=== PATIENT | female | born 1980 | race Caucasian/White ===

== ENCOUNTER 2024-11-07 17:29 | Inpatient (IN) | payer MEDICAID ==
[~2024-11-07] VITALS: Ht 152.4 cm; Wt 69.4 kg
[2024-11-07 21:20] VITALS: BP 111/73; PULSE 78; RESP 18; TEMP 96.6; O2SAT 98
[2024-11-07] MEDS ORDERED: chlorproMAZINE 25mg tablet PO PRN (21:55)
[2024-11-07] MEDS ORDERED: loperamide 2mg capsule PO PRN (21:55)
[2024-11-07] MEDS ORDERED: magnesium hydroxide 30ml (MOM) UD suspension PO PRN (21:55)
[2024-11-07] MEDS ORDERED: mag hydrox/Alum hydrox/simeth 30ml oral suspension PO PRN (21:55)
[2024-11-07] MEDS ORDERED: hydrOXYzine 25 MG tablet PO PRN (21:55)
[2024-11-07] MEDS ORDERED: diphenhydrAMINE 25mg capsule PO PRN (21:55)
[2024-11-07] MEDS ORDERED: acetaminophen 325mg tablet PO PRN ×2 (21:55)
[2024-11-08 07:45] VITALS: RESP 16
--- NOTE | 2024-11-08 13:04 | HISTORY AND PHYSICAL ---
MH History & Physical - Blank History and Physical CHIEF COMPLIANT DANGER TO SELF DANGER TO OTHERS GRAVELY DISABLED HISTORY OF PRESENT ILLNESS This patient is a 43-year-old female with a past medical history of schizoaffective disorder with multiple prior visits to Mental Health who is very familiar with the patient who presents with mental health and for other police officers due to being a danger to self, others and possible gravely disabled. Patient states that she is the president of you crying in [place] as well as being involved in trauma. The patient states that she will not take any medication that she would not give any bled as she is allergic to giving blood and will pass out. The patient was noted to have been going from household to household presenting herself as being a danger to others and verbal form but not physical form. The patient presents denied any complaints but also refusing to answer any questions other than the questions which she has decided to talk about with a rambling stream of consciousness with evidence of paranoia and delusional. CHART REVIEW This 43 year old female admitted [facility] shift at 2119 from [facility]. Arrived to unit from ED via w/c, accompanied per [facility] staff and Security Personnel. Pt is on a 5150 for DTS, DTO and GD. Per 5150, this pt was being evaluated for release from senior care but had no plan for providing food, clothing or half-way. Also, she is reported to be delusional, stating that the was the President of the [place] and [facility]. She is also reported to have been responding to internal stimuli. Prior to her arrest, she was reported to have been wandering from house to house and harassing others, and she told nurses she would find a house and move in. Referral info states she also said she was the of Chance Bergman (a fictional character) and that the [facility] government would bring to others. Upon arrival to [facility], she denies SI/HI/AVH. Upon meeting pt, she spoke in Maltese and appeared to understand/comprehend. When asked about her primary language (pt's referral information reports that she is from [facility] before explaining her 5150 hold, she stated she wanted an Connection Worker. When explaining to pt that I would explain the 5150 using the camp counselor but it might be several minutes before the camp counselor machine could be obtained, she gave verbal permission to receive the verbal advisement in Maltese and verbalized that she understood. Also presented pt with 5150 advisement in writing. On admit, Pt hostile, refusing to answer most questions, stating she does not want to be here and the re is no reason for her to be here. Alert, oriented to person and place but she has poor insight into her need for hospitalization. ASSESSMENT The patient refused assessment today. The patient endorses "I am not talking to anyone here." The patient is stable no acute distress noted. The patient is a, irritable, agitated, paranoid, delusional, and disengaged. The patient was noted responding to internal stimuli AEB talking to herself. Will continue daily assessment and adjusting treatment as needed. Closely monitor behavior and response to medication during hospitalization. Discussed treatment plan with patient. ASE/risks and benefits of chosen treatment. REVIEW OF LABS URINALYSIS NEGATIVE URINE DRUG SCREEN NEGATIVE WBC 8.6 RBC 4.22 HEMOGLOBIN 12.8 HEMATOCRIT 37.3 PLATELETS 347 SODIUM 141 POTASSIUM 3.6 CHLORIDE 108 ANION GAP 10 GLUCOSE 98 BUN 11 CREATININE 0.72 CALCIUM 9.1 ALT22 AST12 TSH 5.32 MENTAL STATUS EXAM BEHAVIOR: UNCOOPERATIVE JUDGMENT: POOR INSIGHT: POOR TREATMENT PALIPERIDONE 3 MG P.O. Q.H.S. Monitoring by Staff, Milieu, Group, and Individual counseling as needed -- According to the [place] Suicide Assessment the above named patient is on Q15 MINUTE CHECKS. [id number]-The patient is unable to formulate a plan to safely meet their basic needs of food, clothing, and half-way. We are still titrating medications to an effective dose while maintaining a therapeutic environment to prevent decompensation and readmission. Total time spent 20 minutes REVIEW OF Clinical notes [X ] RN notes [X] PCT documentation [X] SW notes Labs [ X] Medications [X] Care trends/care activity [X] Vitals [X] DISCUSSION WITH directional drill operator [X] Staff SW [X] Treatment Team [X] DISCHARGE UNSURE AT THIS TIME. DISCHARGE HOME ONCE STABLE. Past Psychiatric History Past Psychiatric History PATIENT REFUSED TO PARTICIPATE IN THE ASSESSMENT Past Medical History Past Medical History SEE MEDICAL H & P Past Surgical History Past Surgical History PATIENT REFUSED TO PARTICIPATE IN THE ASSESSMENT Past Family History Patient History: Patient reports no known family medical history. Substance Abuse History Substance Abuse History PATIENT REFUSED TO PARTICIPATE IN THE ASSESSMENT Personal History Current Living Situation PATIENT REFUSED TO PARTICIPATE IN THE ASSESSMENT Marital & Relationship History PATIENT REFUSED TO PARTICIPATE IN THE ASSESSMENT Sexual History PATIENT REFUSED TO PARTICIPATE IN THE ASSESSMENT Occupational History PATIENT REFUSED TO PARTICIPATE IN THE ASSESSMENT Social Activity PATIENT REFUSED TO PARTICIPATE IN THE ASSESSMENT Baptist PATIENT REFUSED TO PARTICIPATE IN THE ASSESSMENT Legal History PATIENT REFUSED TO PARTICIPATE IN THE ASSESSMENT History PATIENT REFUSED TO PARTICIPATE IN THE ASSESSMENT Developmental History Childhood PATIENT REFUSED TO PARTICIPATE IN THE ASSESSMENT Assessment/Plan Problems/Diagnosis: (1) Schizoaffective disorder CODING VISIT-PSYCHIATRY Date of Service: Nov 08, 2024 Billing Provider: IVANNA TRAORE APRN Psych Common Visit Codes: [id number] INP/OBS CARE (High) IVANNA TRAORE APRN Nov 08, 2024 13:04
--- NOTE | 2024-11-08 15:36 | HISTORY AND PHYSICAL ---
History & Physical Providers to CC ~ History of Present Illness History of Present Illness PT REFUSED Allergies: Coded Allergies: No Known Allergies (Unverified , 11/07/24) Family History Family History: Patient reports no known family medical history. Exam Vitals: Vital Signs Date Time Temp Pulse Resp B/P (MAP) Pulse Ox O2 Delivery O2 Flow Rate FiO2 11/08/24 07:45 16 11/08/24 07:30 Room Air 11/07/24 21:20 96.6 78 111/73 (86) 98 HENRY GRAY MD Nov 08, 2024 15:36
[2024-11-08 19:00] VITALS: RESP 16
[2024-11-08 20:00] VITALS: RESP 16
[2024-11-08] MEDS: PALIPERIDONE 3 MG TAB.ER.24 PO SCH (21:00)
[2024-11-08] MEDS: OLANZapine 5mg rapidly disint. tablet PO SCH (21:00)
[2024-11-09 08:47] VITALS: RESP 16
[2024-11-09 12:52] VITALS: RESP 16
--- NOTE | 2024-11-09 13:57 | PROGRESS NOTE ---
Progress Note Dictate Providers to CC ~ Central Line/PICC still needed: N\\A Antibiotic Ordered?: No MRSA Education MRSA Education Provided to pt: No Objective Vitals Vital Signs Date Time Temp Pulse Resp B/P (MAP) Pulse Ox O2 Delivery O2 Flow Rate FiO2 11/09/24 12:52 16 Room Air 11/07/24 21:20 96.6 78 111/73 (86) 98 Problem\\Assessment\\Plan Problems/Diagnosis: (1) Schizoaffective disorder Psychiatrist's Progress Note Date of Service: Nov 09, 2024 Notes CHART REVIEW This 43 year old female admitted [facility] shift at 2118 from [facility]. Arrived to unit from ED via w/c, accompanied per [facility] staff and Security Personnel. Pt is on a 5150 for DTS, DTO and GD. Per 5150, this pt was being evaluated for release from correction but had no plan for providing food, clothing or assisted. Also, she is reported to be delusional, stating that the was the President of the and [facility]. She is also reported to have been responding to internal stimuli. Prior to her arrest, she was reported to have been wandering from house to house and harassing others, and she told nurses she would find a house and move in. Referral info states she also said she was the of Chance Bergman (a fictional character) and that the [facility] government would bring to others. Upon arrival to [facility], she denies SI/HI/AVH. Upon meeting pt, she spoke in [place] and appeared to understand/comprehend. When asked about her primary language (pt's referral information reports that she is from [facility]) before explaining her 5150 hold, she stated she wanted an Propellant Assembler. When explaining to pt that I would explain the 5150 using the bilingual interpreter but it might be several minutes before the bilingual interpreter machine could be obtained, she gave verbal permission to receive the verbal advisement in Emirati and verbalized that she understood. Also presented pt with 5150 advisement in writing. On admit, Pt hostile, refusing to answer most questions, stating she does not want to be here and there is no reason for her to be here. Alert, oriented to person and place but she has poor insight into her need for hospitalization. ASSESSMENT The patient refused assessment today. The patient endorses "I am not talking to anyone here." The patient is stable no acute distress noted. Will continue daily assessment and adjusting treatment as needed. Closely monitor behavior and response to medication during hospitalization. Patient may need to be Riese if she continues to refuse assessments and medications. Results Of any Diagn. Testing REVIEW OF LABS URINALYSIS NEGATIVE URINE DRUG SCREEN NEGATIVE WBC 8.6 RBC 4.22 HEMOGLOBIN 12.8 HEMATOCRIT 37.3 PLATELETS 347 SODIUM 141 POTASSIUM 3.6 CHLORIDE 108 ANION GAP 10 GLUCOSE 98 BUN 11 CREATININE 0.72 CALCIUM 9.1 ALT22 AST12 TSH 5.32 Speech: Pressured Behavior: Other (UNCOOPERATIVE ) Insight: Poor Judgment: Poor Treatment PALIPERIDONE 3 MG P.O. Q.H.S. Monitoring by Staff, Milieu, Group, and Individual counseling as needed -- According to the [place] Suicide Assessment the above named patient is on Q15 MINUTE CHECKS. [id number]-The patient is unable to formulate a plan to safely meet their basic needs of food, clothing, and assisted. We are still titrating medications to an effective dose while maintaining a therapeutic environment to prevent decompensation and readmission. Total time spent 15 minutes REVIEW OF Clinical notes [X ] RN notes [X] PCT documentation [X] SW notes Labs [ X] Medications [X] Care trends/care activity [X] Vitals [X] DISCUSSION WITH cloth opener hand [X] Staff SW [X] Treatment Team [X] Discharge UNSURE AT THIS TIME. DISCHARGE HOME ONCE STABLE. CODING VISIT-PSYCHIATRY Date of Service: Nov 09, 2024 Billing Provider: IVANNA TRAORE APRN Psych Common Visit Codes: [id number] INP/OBS CARE(Mod) IVANNA TRAORE APRN Nov 09, 2024 13:57
[2024-11-09 20:00] VITALS: RESP 16
[2024-11-10 07:00] VITALS: RESP 16
[2024-11-10 08:26] VITALS: RESP 16
--- NOTE | 2024-11-10 11:26 | PROGRESS NOTE ---
Daily Progress Note Providers to CC ~ Antibiotic Timeout Antibiotic Ordered?: No Subjective Patient has no medical complaints Objective Vital Signs Date Time Temp Pulse Resp B/P (MAP) Pulse Ox O2 Delivery O2 Flow Rate FiO2 11/10/24 08:26 16 Room Air 11/07/24 21:20 96.6 78 111/73 (86) 98 HEENT normal oral mucosa no JVD Lungs with normal bilateral entry Heart normal rate and rhythm Abdomen is soft nontender Extremities no edema Awake and alert Problem\Assessment\Plan Patient admitted to Mental Health for management of schizoaffective disorder; management per Psychiatry No acute medical issues Date of Service: Nov 10, 2024 Billing Provider: ERNIE OBRIEN MD Common Visit Codes: [id number] INP/OBS CARE(MOD) ERNIE OBRIEN MD Nov 10, 2024 11:25
--- NOTE | 2024-11-10 13:46 | PROGRESS NOTE ---
Progress Note Dictate Providers to CC ~ Central Line/PICC still needed: N\\A Antibiotic Ordered?: No MRSA Education MRSA Education Provided to pt: No Objective Vitals Vital Signs Date Time Temp Pulse Resp B/P (MAP) Pulse Ox O2 Delivery O2 Flow Rate FiO2 11/10/24 08:26 16 Room Air 11/07/24 21:20 96.6 78 111/73 (86) 98 Problem\\Assessment\\Plan Problems/Diagnosis: (1) Schizoaffective disorder Psychiatrist's Progress Note Date of Service: Nov 10, 2024 Notes CHART REVIEW This 43 year old female admitted [facility] shift at 2118 from [facility]. Arrived to unit from ED via w/c, accompanied per [facility] staff and Security Personnel. Pt is on a 5150 for DTS, DTO and GD. Per 5150, this pt was being evaluated for release from residential but had no plan for providing food, clothing or skilled nursing. Also, she is reported to be delusional, stating that the was the President of the and [facility]. She is also reported to have been responding to internal stimuli. Prior to her arrest, she was reported to have been wandering from house to house and harassing others, and she told nurses she would find a house and move in. Referral info states she also said she was the of Chance Bergman (a fictional character) and that the [facility] government would bring to others. Upon arrival to [facility], she denies SI/HI/AVH. Upon meeting pt, she spoke in [place] and appeared to understand/comprehend. When asked about her primary language (pt's referral information reports that she is from [facility]) before explaining her 5150 hold, she stated she wanted an Vice President Of Talent Acquisition. When explaining to pt that I would explain the 5150 using the computer engineering professor but it might be several minutes before the computer engineering professor machine could be obtained, she gave verbal permission to receive the verbal advisement in [place] and verbalized that she understood. Also presented pt with 5150 advisement in writing. On admit, Pt hostile, refusing to answer most questions, stating she does not want to be here and there is no reason for her to be here. Alert, oriented to person and place but she has poor insight into her need for hospitalization. ASSESSMENT The patient refused assessment today. The patient endorses "None of your bushiness" The patient is stable no acute distress noted. Will continue daily assessment and adjusting treatment as needed. Closely monitor behavior and response to medication during hospitalization. Patient may need to be Riese if she continues to refuse assessments and medications. Results Of any Diagn. Testing REVIEW OF LABS URINALYSIS NEGATIVE URINE DRUG SCREEN NEGATIVE WBC 8.6 RBC 4.22 HEMOGLOBIN 12.8 HEMATOCRIT 37.3 PLATELETS 347 SODIUM 141 POTASSIUM 3.6 CHLORIDE 108 ANION GAP 10 GLUCOSE 98 BUN 11 CREATININE 0.72 CALCIUM 9.1 ALT22 AST12 TSH 5.32 Speech: Pressured Behavior: Other (UNCOOPERATIVE) Insight: Poor Judgment: Poor Treatment PALIPERIDONE 3 MG P.O. Q.H.S. Monitoring by Staff, Milieu, Group, and Individual counseling as needed -- According to the [place] Suicide Assessment the above named patient is on Q15 MINUTE CHECKS. [id number]-The patient is unable to formulate a plan to safely meet their basic needs of food, clothing, and skilled nursing. We are still titrating medications to an effective dose while maintaining a therapeutic environment to prevent decompensation and readmission. Total time spent 15 minutes REVIEW OF Clinical notes [X ] RN notes [X] PCT documentation [X] SW notes Labs [ X] Medications [X] Care trends/care activity [X] Vitals [X] DISCUSSION WITH molded frames assembler [X] Staff SW [X] Treatment Team [X] Discharge UNSURE AT THIS TIME. DISCHARGE HOME ONCE STABLE. CODING VISIT-PSYCHIATRY Date of Service: Nov 10, 2024 Billing Provider: IVANNA TRAORE APRN Psych Common Visit Codes: [id number] INP/OBS CARE(Mod) IVANNA TRAORE APRN Nov 10, 2024 13:46
[2024-11-11 08:00] VITALS: RESP 15
--- NOTE | 2024-11-11 11:33 | PROGRESS NOTE ---
Progress Note Dictate Providers to CC ~ Central Line/PICC still needed: N\\A Antibiotic Ordered?: No MRSA Education MRSA Education Provided to pt: No Objective Vitals Vital Signs Date Time Temp Pulse Resp B/P (MAP) Pulse Ox O2 Delivery O2 Flow Rate FiO2 11/10/24 21:54 Room Air 11/10/24 08:26 16 11/07/24 21:20 96.6 78 111/73 (86) 98 Problem\\Assessment\\Plan Problems/Diagnosis: (1) Schizoaffective disorder Psychiatrist's Progress Note Date of Service: Nov 11, 2024 Notes CHART REVIEW This 43 year old female admitted [facility] shift at 2118 from [facility]. Arrived to unit from ED via w/c, accompanied per [facility] staff and Security Personnel. Pt is on a 5150 for DTS, DTO and GD. Per 5150, this pt was being evaluated for release from residential but had no plan for providing food, clothing or intermediate. Also, she is reported to be delusional, stating that the was the President of the [employer] and [facility]. She is also reported to have been responding to internal stimuli. Prior to her arrest, she was reported to have been wandering from house to house and harassing others, and she told nurses she would find a house and move in. Referral info states she also said she was the of Chance Bergman (a fictional character) and that the [facility] government would bring to others. Upon arrival to [facility], she denies SI/HI/AVH. Upon meeting pt, she spoke in Niuean and appeared to understand/comprehend. When asked about her primary language (pt's referral information reports that she is from [facility]) before explaining her 5150 hold, she stated she wanted an Marketing Program Coordinator. When explaining to pt that I would explain the 5150 using the photo journalist but it might be several minutes before the photo journalist machine could be obtained, she gave verbal permission to receive the verbal advisement in Niuean and verbalized that she understood. Also presented pt with 5150 advisement in writing. On admit, Pt hostile, refusing to answer most questions, stating she does not want to be here and th ere is no reason for her to be here. Alert, oriented to person and place but she has poor insight into her need for hospitalization. ASSESSMENT The patient was interviewed in designated room. The patient was actively resting in bed with eyes open. The patient endorses "I am ready for court." "I don't need to be here because I am healthy." When asked why she was here the patient endorses "Go ask the bitches that brought me here." "I don't want to talk." "I don't give a shit what you got to say." The patient is stable no acute distress noted. The patient presents as uncooperative, pressured speech, hostile, and engaged during session. Per staff report patient is medication compliant. Per staff report no abnormal behaviors. Will continue daily assessment and adjusting treatment as needed. Closely monitor behavior and response to medication during hospitalization. Results Of any Diagn. Testing REVIEW OF LABS URINALYSIS NEGATIVE URINE DRUG SCREEN NEGATIVE WBC 8.6 RBC 4.22 HEMOGLOBIN 12.8 HEMATOCRIT 37.3 PLATELETS 347 SODIUM 141 POTASSIUM 3.6 CHLORIDE 108 ANION GAP 10 GLUCOSE 98 BUN 11 CREATININE 0.72 CALCIUM 9.1 ALT22 AST12 TSH 5.32 MENTAL STATUS EXAM BEHAVIOR: UNCOOPERATIVE JUDGMENT: POOR INSIGHT: POOR Appearnace: Other Speech: Pressured Eye Contact: Avoidant Affect: Constricted Behavior: Other (UNCOOPERATIVE) Insight: Poor Judgment: Poor Treatment PALIPERIDONE 3 MG P.O. Q.H.S. Monitoring by Staff, Milieu, Group, and Individual counseling as needed -- According to the [place] Suicide Assessment the above named patient is on Q15 MINUTE CHECKS. [id number]-The patient is unable to formulate a plan to safely meet their basic needs of food, clothing, and intermediate. We are still titrating medications to an effective dose while maintaining a therapeutic environment to prevent decompensation and readmission. Total time spent 30 minutes REVIEW OF Clinical notes [X ] RN notes [X] PCT documentation [X] SW notes Labs [ X] Medications [X] Care trends/care activity [X] Vitals [X] DISCUSSION WITH automobile travel club counselor [X] Staff SW [X] Treatment Team [X] Discharge UNSURE AT THIS TIME. DISCHARGE HOME ONCE STABLE. CODING VISIT-PSYCHIATRY Date of Service: Nov 11, 2024 Billing Provider: IVANNA TRAORE APRN Psych Common Visit Codes: [id number] INP/OBS CARE(Mod) IVANNA TRAORE APRN Nov 11, 2024 11:33
[2024-11-11 20:00] VITALS: RESP 16
[2024-11-11] MEDS: OLANZapine 5mg rapidly disint. tablet PO SCH (21:11)
[2024-11-12 07:00] VITALS: RESP 16
[2024-11-12 08:00] VITALS: RESP 16
--- NOTE | 2024-11-12 13:22 | PROGRESS NOTE ---
Progress Note Dictate Providers to CC ~ Central Line/PICC still needed: N\\A Antibiotic Ordered?: No MRSA Education MRSA Education Provided to pt: No Objective Vitals Vital Signs Date Time Temp Pulse Resp B/P (MAP) Pulse Ox O2 Delivery O2 Flow Rate FiO2 11/12/24 08:00 16 11/11/24 19:00 Room Air Problem\\Assessment\\Plan Problems/Diagnosis: (1) Schizoaffective disorder Psychiatrist's Progress Note Date of Service: Nov 12, 2024 Notes CHART REVIEW This 43 year old female admitted [facility] shift at 2118 from [facility]. Arrived to unit from ED via w/c, accompanied per [facility] staff and [facility] Personnel. Pt is on a 5150 for DTS, DTO and GD. Per 5150, this pt was being evaluated for release from detention but had no plan for providing food, clothing or nursing home. Also, she is reported to be delusional, stating that the was the President of the and [facility]. She is also reported to have been responding to internal stimuli. Prior to her arrest, she was reported to have been wandering from house to house and harassing others, and she told nurses she would find a house and move in. Referral info states she also said she was the of Chance Bergman (a fictional character) and that the [facility] government would bring to others. Upon arrival to [facility], she denies SI/HI/AVH. Upon meeting pt, she spoke in Swedish and appeared to understand/comprehend. When asked about her primary language (pt's referral information reports that she is from [facility]) before explaining her 5150 hold, she stated she wanted an Music Supervisor. When explaining to pt that I would explain the 5150 using the board finisher but it might be several minutes before the board finisher machine could be obtained, she gave verbal permission to receive the verbal advisement in Swedish and verbalized that she understood. Also presented pt with 5150 advisement in writing. On admit, Pt hostile, refusing to answer most questions, stating she does not want to be here and there is no reason for her to be here. Alert, oriented to person and place but she has poor insight into her need for hospitalization. ASSESSMENT The patient was interviewed in designated room. The patient was actively resting in bed with eyes closed. The patient endorses "Nothing is going on with me; I want to sleep." "I am not going to answer more of your question." The patient is stable no acute distress noted. The patient presents as uncooperative, pressured speech, hostile, and engaged during session. Per staff report patient is medication compliant. Per staff report no abnormal behaviors. Will continue daily assessment and adjusting treatment as needed. Closely monitor behavior and response to medication during hospitalization. Results Of any Diagn. Testing REVIEW OF LABS URINALYSIS NEGATIVE URINE DRUG SCREEN NEGATIVE WBC 8.6 RBC 4.22 HEMOGLOBIN 12.8 HEMATOCRIT 37.3 PLATELETS 347 SODIUM 141 POTASSIUM 3.6 CHLORIDE 108 ANION GAP 10 GLUCOSE 98 BUN 11 CREATININE 0.72 CALCIUM 9.1 ALT22 AST12 TSH 5.32 Speech: Pressured Mood: Irritable Behavior: Agitated, Other Insight: Poor Judgment: Poor Treatment Discontinue PALIPERIDONE 3 MG P.O. Q.H.S. Initiate OLANZAPINE 5MG PO HS Monitoring by Staff, Milieu, Group, and Individual counseling as needed -- A ccording to the [facility] Suicide [facility] the above named patient is on Q15 MINUTE CHECKS. [id number]-The patient is unable to formulate a plan to safely meet their basic needs of food, clothing, and nursing home. We are still titrating medications to an effective dose while maintaining a therapeutic environment to prevent decompensation and readmission. Total time spent 25 minutes REVIEW OF Clinical notes [X ] RN notes [X] PCT documentation [X] SW notes Labs [ X] Medications [X] Care trends/care activity [X] Vitals [X] DISCUSSION WITH heel layer [X] Staff SW [X] Treatment Team [X] Discharge UNSURE AT THIS TIME. DISCHARGE HOME ONCE STABLE. CODING VISIT-PSYCHIATRY Date of Service: Nov 12, 2024 Billing Provider: IVANNA TRAORE APRN Psych Common Visit Codes: [id number] INP/OBS CARE(Mod) IVANAN TRAORE APRN Nov 12, 2024 13:22
--- NOTE | 2024-11-12 16:04 | PROGRESS NOTE ---
Daily Progress Note Providers to CC ~ Antibiotic Timeout Antibiotic Ordered?: No Subjective Patient was seen in mental health unit in presence of nursing staff she refused to get examined in wants me to get out of the room Objective Vital Signs Date Time Temp Pulse Resp B/P (MAP) Pulse Ox O2 Delivery O2 Flow Rate FiO2 11/12/24 08:00 16 11/12/24 07:00 Room Air Lying on bed looks comfortable refused for examination Problem\Assessment\Plan Patient admitted to Mental Health for management of schizoaffective disorder; management per Psychiatry No acute medical issues. We will continue to follow patient from hospitalist team as needed or as per protocol Date of Service: Nov 12, 2024 Billing Provider: ELSY PAIGE MD Common Visit Codes: [id number] INP/OBS CARE(LOW) ELSY PAIGE MD Nov 12, 2024 16:04
[2024-11-12 19:00] VITALS: RESP 16
[2024-11-12 20:00] VITALS: RESP 16
[2024-11-13 07:00] VITALS: RESP 14
[2024-11-13 08:00] VITALS: RESP 14
--- NOTE | 2024-11-13 11:08 | PROGRESS NOTE ---
Progress Note Dictate Providers to CC ~ Central Line/PICC still needed: N\A Antibiotic Ordered?: No MRSA Education MRSA Education Provided to pt: No Objective Vitals Vital Signs Date Time Temp Pulse Resp B/P (MAP) Pulse Ox O2 Delivery O2 Flow Rate FiO2 11/13/24 08:00 14 Room Air Problem\Assessment\Plan Problems/Diagnosis: (1) Schizoaffective disorder Psychiatrist's Progress Note Date of Service: Nov 13, 2024 Notes CHART REVIEW This 43 year old female admitted [facility] shift at 2118 from [facility]. Arrived to unit from ED via w/c, accompanied per [facility] staff and Security Personnel. Pt is on a 5150 for DTS, DTO and GD. Per 5150, this pt was being evaluated for release from skilled nursing but had no plan for providing food, clothing or residential. Also, she is reported to be delusional, stating that the was the President of the and [facility]. She is also reported to have been responding to internal stimuli. Prior to her arrest, she was reported to have been wandering from house to house and harassing others, and she told nurses she would find a house and move in. Referral info states she also said she was the of Chance Bergman (a fictional character) and that the [facility] government would bring to others. Upon arrival to [facility], she denies SI/HI/AVH. Upon meeting pt, she spoke in [place] Island[place] and appeared to understand/comprehend. When asked about her primary language (pt's referral information reports that she is from [facility]) before explaining her 5150 hold, she stated she wanted an Diamond Blender. When explaining to pt that I would explain the 5150 using the tube cleaner but it might be several minutes before the tube cleaner machine could be obtained, she gave verbal permission to receive the verbal advisement in [place] Island[place] and verbalized that she understood. Also presented pt with 5150 advisement in writing. On admit, Pt hostile, refusing to answer most questions, stating she does not want to be here and there is no reason for her to be here. Alert, oriented to person and place but she has poor insight into her need for hospitalization. ASSESSMENT The patient was interviewed in designated room. The patient was actively sitting up in bed.. The patient closed her eyes and would not acknowledge this telegraphic typewriter operator. The patient is stable no acute distress noted. The patient presents as uncooperative, pressured speech, hostile, and engaged during session. Per staff report patient is medication compliant. Per staff report patient is demanding and wants things when she asks for them. Staff report patient was out of room participating in activities. Will continue daily assessment and adjusting treatment as needed. Closely monitor behavior and response to medication during hospitalization. Results Of any Diagn. Testing REVIEW OF LABS URINALYSIS NEGATIVE URINE DRUG SCREEN NEGATIVE WBC 8.6 RBC 4.22 HEMOGLOBIN 12.8 HEMATOCRIT 37.3 PLATELETS 347 SODIUM 141 POTASSIUM 3.6 CHLORIDE 108 ANION GAP 10 GLUCOSE 98 BUN 11 CREATININE 0.72 CALCIUM 9.1 ALT22 AST12 TSH 5.32 Insight: Poor Judgment: Poor Treatment Increase OLANZAPINE 10MG PO HS Monitoring by Staff, Milieu, Group, and Individual counseling as needed -- According to the [place] Suicide Assessment the above named patient is on Q15 MINUTE CHECKS. [id number]-The patient is unable to formulate a plan to safely meet their basic needs of food, clothing, and residential. We are still titrating medications to an effective dose while maintaining a therapeutic environment to prevent decompensation and readmission. Total time spent 35 minutes REVIEW OF Clinical notes [X ] RN notes [X] PCT documentation [X] SW notes Labs [ X] Medications [X] Care trends/care activity [X] Vitals [X] DISCUSSION WITH it recruiter [X] Staff SW [X] Treatment Team [X] Discharge UNSURE AT THIS TIME. DISCHARGE HOME ONCE STABLE. CODING VISIT-PSYCHIATRY Date of Service: Nov 13, 2024 Billing Provider: IVANNA TRAORE APRN Psych Common Visit Codes: [id number] INP/OBS CARE(Mod) IVANNA TRAORE APRN Nov 13, 2024 11:08
[2024-11-13] MEDS: haloperidol lactate 5mg/ml inj ONE (13:16)
[2024-11-13] MEDS: LORazepam 2 mg/ml vial ONE (13:17)
[2024-11-13] MEDS: diphenhydrAMINE 50 mg/ml inj ONE (13:17)
[2024-11-13 19:00] VITALS: RESP 16
[2024-11-13 20:00] VITALS: RESP 16
[2024-11-14 07:30] VITALS: RESP 14
--- NOTE | 2024-11-14 13:59 | PROGRESS NOTE ---
Progress Note Dictate Providers to CC ~ Central Line/PICC still needed: N\A Antibiotic Ordered?: No MRSA Education MRSA Education Provided to pt: No Objective Vitals Vital Signs Date Time Temp Pulse Resp B/P (MAP) Pulse Ox O2 Delivery O2 Flow Rate FiO2 11/14/24 07:30 Room Air 11/14/24 07:30 14 Problem\Assessment\Plan Problems/Diagnosis: (1) Schizoaffective disorder Psychiatrist's Progress Note Date of Service: Nov 14, 2024 Notes CHART REVIEW This 43 year old female admitted [facility] shift at 2118 from [facility]. Arrived to unit from ED via w/c, accompanied per [facility] staff and Count includes the [facility] Personnel. Pt is on a 5150 for DTS, DTO and GD. Per 5150, this pt was being evaluated for release from half-way but had no plan for providing food, clothing or prison. Also, she is reported to be delusional, stating that the was the President of the and [facility]. She is also reported to have been responding to internal stimuli. Prior to her arrest, she was reported to have been wandering from house to house and harassing others, and she told nurses she would find a house and move in. Referral info states she also said she was the of Chance Bergman (a fictional character) and that the [place] government would bring to others. Upon arrival to [facility], she denies SI/HI/AVH. Upon meeting pt, she spoke in Citizen Of [place] and appeared to understand/comprehend. When asked about her primary language (pt's referral information reports that she is from [facility]) before explaining her 5150 hold, she stated she wanted an Personal Chef. When explaining to pt that I would explain the 5150 using the pododermatologist but it might be several minutes before the pododermatologist machine could be obtained, she gave verbal permission to receive the verbal advisement in Citizen [place] and verbalized that she understood. Also presented pt with 5150 advisement in writing. On admit, Pt hostile, refusing to answer most questions, stating she does not want to be here and there is no reason for her to be here. Alert, oriented to person and place but she has poor insight into her need for hospitalization. ASSESSMENT The patient was interviewed in designated room. The patient was actively resting in bed with eyes closed. The patient closed her eyes and would not acknowledge this script writer. The patient is stable no acute distress noted. The patient presents as uncooperative, not able to be re-directed, and disengaged during session. Per staff report patient is medication compliant. Per staff report patient received PRN medication due to Pt was using foul language and name calling. She began to hit the glass on the nurses station and yelling I want the number to the [place] [employer]. Will continue daily assessment and adjusting treatment as needed. Closely monitor behavior and response to medication during hospitalization. Results Of any Diagn. Testing REVIEW OF LABS URINALYSIS NEGATIVE URINE DRUG SCREEN NEGATIVE WBC 8.6 RBC 4.22 HEMOGLOBIN 12.8 HEMATOCRIT 37.3 PLATELETS 347 SODIUM 141 POTASSIUM 3.6 CHLORIDE 108 ANION GAP 10 GLUCOSE 98 BUN 11 CREATININE 0.72 CALCIUM 9.1 ALT22 AST12 TSH 5.32 Speech: Tangential, Pressured Behavior: Other (UNCOOPERATIVE) Insight: Poor Judgment: Poor Treatment OLANZAPINE 10MG PO HS Monitoring by Staff, Milieu, Group, and Individual counseling as needed -- According to the [place] Suicide Assessment the above named patient is on Q15 MINUTE CHECKS. [id number]-The patient is unable to formulate a plan to safely meet their basic needs of food, clothing, and prison. We are still titrating medications to an effective dose while maintaining a therapeutic environment to prevent decompensation and readmission. Total time spent 35 minutes REVIEW OF Clinical notes [X ] RN notes [X] PCT documentation [X] SW notes Labs [ X] Medications [X] Care trends/care activity [X] Vitals [X] DISCUSSION WITH penology teacher [X] Staff SW [X] Treatment Team [X] Discharge UNSURE AT THIS TIME. DISCHARGE HOME ONCE STABLE. CODING VISIT-PSYCHIATRY Date of Service: Nov 14, 2024 Billing Provider: IVANNA TRAORE APRN Psych Common Visit Codes: [id number] INP/OBS CARE(Mod) IVANNA TRAORE APRN Nov 14, 2024 13:59
[2024-11-14 19:00] VITALS: RESP 17
--- NOTE | 2024-11-14 19:35 | PROGRESS NOTE- Residence ---
Progress Note - Resident Providers to CC Resident Creating Document: LUAN RIBEIRO RES ~ Antibiotic Timeout Antibiotic Ordered?: No Subjective Patient seen in the mental health unit. States she does not want to communicate at this time. Checked with the nurse she does not have any medical concerns at this time Objective Vital Signs Date Time Temp Pulse Resp B/P (MAP) Pulse Ox O2 Delivery O2 Flow Rate FiO2 11/14/24 07:30 Room Air 11/14/24 07:30 14 Patient did not want to participate in examination Plan Plan Schizoaffective disorder Management per psychiatrist, hospitalist team will continue to follow. Date of Service: Nov 14, 2024 Billing Provider: ERNIE OBRIEN MD Common Visit Codes: [id number] INP/OBS CARE(MOD) LUAN RIBEIRO RES Nov 14, 2024 19:35 ERNIE OBRIEN MD Nov 22, 2024 07:36
[2024-11-14 20:00] VITALS: RESP 17
[2024-11-14] MEDS: OLANZapine 5mg rapidly disint. tablet PO ONE (21:45)
--- NOTE | 2024-11-15 07:26 | PROGRESS NOTE ---
Progress Note Dictate Providers to CC ~ Central Line/PICC still needed: N\A Antibiotic Ordered?: No MRSA Education MRSA Education Provided to pt: No Objective Vitals Vital Signs Date Time Temp Pulse Resp B/P (MAP) Pulse Ox O2 Delivery O2 Flow Rate FiO2 11/14/24 20:00 17 Room Air Problem\Assessment\Plan Problems/Diagnosis: (1) Schizoaffective disorder Psychiatrist's Progress Note Date of Service: Nov 15, 2024 Notes CHART REVIEW This 43 year old female admitted [facility] shift at 2118 from [facility]. Arrived to unit from ED via w/c, accompanied per [facility] staff and Security Personnel. Pt is on a 5150 for DTS, DTO and GD. Per 5150, this pt was being evaluated for release from assisted but had no plan for providing food, clothing or long term. Also, she is reported to be delusional, stating that the was the President of the and [facility]. She is also reported to have been responding to internal stimuli. Prior to her arrest, she was reported to have been wandering from house to house and harassing others, and she told nurses she would find a house and move in. Referral info states she also said she was the of Chance Bergman (a fictional character) and that the [facility] government would bring to others. Upon arrival to [facility], she denies SI/HI/AVH. Upon meeting pt, she spoke in Citizen Of [place] and appeared to understand/comprehend. When asked about her primary language (pt's referral information reports that she is from [facility]) before explaining her 5150 hold, she stated she wanted an Grinding Wheel Operator. When explaining to pt that I would explain the 5150 using the entertainment usher but it might be several minutes before the entertainment usher machine could be obtained, she gave verbal permission to receive the verbal advisement in Citizen Of [place] and verbalized that she understood. Also presented pt with 5150 advisement in writing. On admit, Pt hostile, refusing to answer most questions, stating she does not want to be here and there is no reason for her to be here. Alert, oriented to person and place but she has poor insight into her need for hospitalization. ASSESSMENT The patient was interviewed in designated room. The patient was actively resting in bed with eyes closed. The patient kept her eyes and would not acknowledge this sheet writer. The patient is stable no acute distress noted. The patient presents as uncooperative, and disengaged during session. Per staff report patient is medication compliant. Per staff report no abnormal behaviors. Per staff report the patient comes out of room for meals and snacks intermittently. Will continue daily assessment and adjusting treatment as needed. Closely monitor behavior and response to medication during hospitalization. Results Of any Diagn. Testing REVIEW OF LABS URINALYSIS NEGATIVE URINE DRUG SCREEN NEGATIVE WBC 8.6 RBC 4.22 HEMOGLOBIN 12.8 HEMATOCRIT 37.3 PLATELETS 347 SODIUM 141 POTASSIUM 3.6 CHLORIDE 108 ANION GAP 10 GLUCOSE 98 BUN 11 CREATININE 0.72 CALCIUM 9.1 ALT22 AST12 TSH 5.32 Behavior: Other (UNCOOPERATIVE ) Insight: Poor Judgment: Poor Treatment OLANZAPINE 10MG PO HS Monitoring by Staff, Milieu, Group, and Individual counseling as needed -- According to the [place] Suicide Assessment the above named patient is on Q15 MINUTE CHECKS. [id number]-The patient is unable to formulate a plan to safely meet their basic needs of food, clothing, and long term. We are still titrating medications to an effective dose while maintaining a therapeutic environment to prevent decompensation and readmission. Total time spent 20 minutes REVIEW OF Clinical notes [X ] RN notes [X] PCT documentation [X] SW notes Labs [ X] Medications [X] Care trends/care activity [X] Vitals [X] DISCUSSION WITH residential subcontractor [X] Staff SW [X] Treatment Team [X] Discharge UNSURE AT THIS TIME. DISCHARGE HOME ONCE STABLE. CODING VISIT-PSYCHIATRY Date of Service: Nov 15, 2024 Billing Provider: IVANNA TRAORE APRN Psych Common Visit Codes: [id number] INP/OBS CARE(Mod) IVANNA TRAORE APRN Nov 15, 2024 07:26
[2024-11-15 07:30] VITALS: RESP 14
[2024-11-15 19:00] VITALS: RESP 14
[2024-11-15 20:00] VITALS: RESP 18
[2024-11-15] MEDS: OLANZapine 5mg rapidly disint. tablet PO SCH (20:15)
[2024-11-16 08:16] VITALS: RESP 16
--- NOTE | 2024-11-16 12:55 | PROGRESS NOTE ---
Progress Note Dictate Providers to CC ~ Central Line/PICC still needed: N\\A Antibiotic Ordered?: No MRSA Education MRSA Education Provided to pt: No Objective Vitals Vital Signs Date Time Temp Pulse Resp B/P (MAP) Pulse Ox O2 Delivery O2 Flow Rate FiO2 11/16/24 08:25 Room Air 11/16/24 08:16 16 Problem\\Assessment\\Plan Problems/Diagnosis: (1) Schizoaffective disorder Psychiatrist's Progress Note Date of Service: Nov 16, 2024 Notes CHART REVIEW This 43 year old female admitted [facility] shift at [address] [facility]. Arrived to unit from ED via w/c, accompanied per [facility] staff and [facility] Personnel. Pt is on a 5150 for DTS, DTO and GD. Per 5150, this pt was being evaluated for release from group home but had no plan for providing food, clothing or assisted. Also, she is reported to be delusional, stating that the was the President of the and [facility]. She is also reported to have been responding to internal stimuli. Prior to her arrest, she was reported to have been wandering from house to house and harassing others, and she told nurses she would find a house and move in. Referral info states she also said she was the of Chance Bergman (a fictional character) and that the [facility] government would bring to others. Upon arrival to [facility], she denies SI/HI/AVH. Upon meeting pt, she spoke in [place] and appeared to understand/comprehend. When asked about her primary language (pt's referral information reports that she is from [facility]) before explaining her 5150 hold, she stated she wanted an Scudding Inspector. When explaining to pt that I would explain the 5150 using the opal miner but it might be several minutes before the opal miner machine could be obtained, she gave verbal permission to receive the verbal advisement in [place] and verbalized that she understood. Also presented pt with 5150 advisement in writing. On admit, Pt hostile, refusing to answer most questions, stating she does not want to be here and there is no reason for her to be here. Alert, oriented to person and place but she has poor insight into her need for hospitalization. ASSESSMENT The patient was interviewed in designated room. The patient was actively walking in hallway returning from lunch. The patient endorses "who told you to increase my medication to 10 mg." "I want you to send me back to my country [facility]." When asked if she had a address or some a we can speak to in [facility] to get collateral to send her back there; The patient laughs and endorses "no I am not giving you my address." The patient refused to answer anymore questions. The patient is stable no acute distress noted. The patient presents as uncooperative, and disengaged during session. Per staff report patient is medication compliant. Per staff report the pateint communicates when she is demanding something. Per staff report the patient comes out of room for meals and snacks. Will continue daily assessment and adjusting treatment as needed. Closely monitor behavior and response to medication during hospitalization. The patient is a poor historian in uncooperative we have nothing to go by if this is her normal behavior if she has she improved, where she lives, where did she come from due to patient being uncooperative. Results Of any Diagn. Testing REVIEW OF LABS URINALYSIS NEGATIVE URINE DRUG SCREEN NEGATIVE WBC 8.6 RBC 4.22 HEMOGLOBIN 12.8 HEMATOCRIT 37.3 PLATELETS 347 SODIUM 141 POTASSIUM 3.6 CHLORIDE 108 ANION GAP 10 GLUCOSE 98 BUN 11 CREATININE 0.72 CALCIUM 9.1 ALT22 AST12 TSH 5.32 Speech: Pressured Eye Contact: Avoidant Motor Activity: Normal Affect: Constricted Behavior: Other (UNCOOPERATIVE) Insight: Poor Judgment: Poor Treatment OLANZAPINE 10MG PO HS Monitoring by Staff, Milieu, Group, and Individual counseling as needed -- According to the [place] Suicide Assessment the above named patient is on Q15 MINUTE CHECKS. [id number]-The patient is unable to formulate a plan to safely meet their basic needs of food, clothing, and assisted. We are still titrating medications to an effective dose while maintaining a therapeutic environment to prevent decompensation and readmission. Total time spent 25 minutes REVIEW OF Clinical notes [X ] RN notes [X] PCT documentation [X] SW notes Labs [ X] Medications [X] Care trends/care activity [X] Vitals [X] DISCUSSION WITH fingernail sculptor [X] Staff SW [X] Treatment Team [X] Discharge UNSURE AT THIS TIME. DISCHARGE HOME ONCE STABLE. CODING VISIT-PSYCHIATRY Date of Service: Nov 16, 2024 Billing Provider: IVANNA TRAORE APRN Psych Common Visit Codes: [id number] INP/OBS CARE(Mod) IVANNA TRAORE APRN Nov 16, 2024 12:55
[2024-11-16 19:10] VITALS: RESP 16
--- NOTE | 2024-11-16 19:21 | PROGRESS NOTE- Residence ---
Progress Note - Resident Providers to CC Resident Creating Document: STEPHAN VYAS RES ~ Antibiotic Timeout Antibiotic Ordered?: No Subjective Patient was seen by lay on her bed in her room [facility]. Patient did not want to talk at the moment and being examined today. Objective Vital Signs Date Time Temp Pulse Resp B/P (MAP) Pulse Ox O2 Delivery O2 Flow Rate FiO2 11/16/24 19:10 16 Room Air Vitals were stable at the moment. Plan Plan # Schizoaffective disorder - Management per psychiatrist, hospitalist team will continue to follow. Disposition: Hospitalist team will follow the patient during hospitalization, you are welcome to questions and medical consultation, appreciate for letting us involved in patient's care. Resident MD attestation: Patient was seen, examined and discussed with attending MD, Dr. Verito VYAS MD Internal Medicine Resident, PGY2 [facility] Date of Service: Nov 16, 2024 Billing Provider: CHACAH SALDANA MD Common Visit Codes: [id number] INP/OBS CARE(MOD) STEPHAN VYAS RES Nov 16, 2024 19:21 CHACHA SALDANA MD Nov 26, 2024 16:44
[2024-11-16 20:00] VITALS: RESP 16
--- NOTE | 2024-11-17 07:01 | PROGRESS NOTE ---
Progress Note Dictate Providers to CC ~ Central Line/PICC still needed: N\\A Antibiotic Ordered?: No MRSA Education MRSA Education Provided to pt: No Objective Vitals Vital Signs Date Time Temp Pulse Resp B/P (MAP) Pulse Ox O2 Delivery O2 Flow Rate FiO2 11/16/24 20:00 16 Room Air Problem\\Assessment\\Plan Problems/Diagnosis: (1) Schizoaffective disorder Psychiatrist's Progress Note Date of Service: Nov 17, 2024 Notes CHART REVIEW This 43 year old female admitted [facility] shift at 2118 from [facility]. Arrived to unit from ED via w/c, accompanied per [facility] staff and Security Personnel. Pt is on a 5150 for DTS, DTO and GD. Per 5150, this pt was being evaluated for release from retirement but had no plan for providing food, clothing or intermediate. Also, she is reported to be delusional, stating that the was the President of the and [facility]. She is also reported to have been responding to internal stimuli. Prior to her arrest, she was reported to have been wandering from house to house and harassing others, and she told nurses she would find a house and move in. Referral info states she also said she was the of Chance Bergman (a fictional character) and that the [facility] government would bring to others. Upon arrival to [facility], she denies SI/HI/AVH. Upon meeting pt, she spoke in Gibralt[place] and appeared to understand/comprehend. When asked about her primary language (pt's referral information reports that she is from [facility]) before explaining her 5150 hold, she stated she wanted an Hot Strip Finisher. When explaining to pt that I would explain the 5150 using the flight coordinator but it might be several minutes before the flight coordinator machine could be obtained, she gave verbal permission to receive the verbal advisement in [place]raltarian and verbalized that she understood. Also presented pt with 5150 advisement in writing. On admit, Pt hostile, refusing to answer most questions, stating she does not want to be here and there is no reason for her to be here. Alert, oriented to person and place but she has poor insight into her need for hospitalization. ASSESSMENT The patient was interviewed in designated room. The patient was actively resting in bed with eyes closed. The patient ignored this insurance underwriter, provided no eye contact and turned away when this insurance underwriter started speaking. The patient is stable no acute distress noted. The patient presents as uncooperative, and disengaged during session. Per staff report patient is medication compliant. Per staff report the patient was making rude comments toward staff; told tech to "fuck off" when attempting to get VS. Per staff report the patient was observed responding to internal stimuli in her room. Will continue daily assessment and adjusting treatment as needed. Closely monitor behavior and response to medication during hospitalization. Results Of any Diagn. Testing REVIEW OF LABS URINALYSIS NEGATIVE URINE DRUG SCREEN NEGATIVE WBC 8.6 RBC 4.22 HEMOGLOBIN 12.8 HEMATOCRIT 37.3 PLATELETS 347 SODIUM 141 POTASSIUM 3.6 CHLORIDE 108 ANION GAP 10 GLUCOSE 98 BUN 11 CREATININE 0.72 CALCIUM 9.1 ALT22 AST12 TSH 5.32 Eye Contact: Avoidant Behavior: Other (UNCOOPERATIVE) Insight: Poor Judgment: Poor Treatment OLANZAPINE 10MG PO HS Monitoring by Staff, Milieu, Group, and Individual counseling as needed -- According to the [place] Suicide Assessment the above named patient is on Q15 MINUTE CHECKS. [id number]-The patient is unable to formulate a plan to safely meet their basic needs of food, clothing, and intermediate. We are still titrating medications to an effective dose while maintaining a therapeutic environment to prevent decompensation and readmission. Total time spent 25 minutes REVIEW OF Clinical notes [X ] RN notes [X] PCT documentation [X] SW notes Labs [ X] Medications [X] Care trends/care activity [X] Vitals [X] DISCUSSION WITH grizzly worker [X] Staff SW [X] Treatment Team [X] Discharge UNSURE AT THIS TIME. DISCHARGE HOME ONCE STABLE CODING VISIT-PSYCHIATRY Date of Service: Nov 17, 2024 Billing Provider: IVANNA TRAORE APRN Psych Common Visit Codes: [id number] INP/OBS CARE(Mod) IVANNA TRAORE APRN Nov 17, 2024 07:01
[2024-11-17 08:05] VITALS: RESP 16
[2024-11-17] MEDS: lactose-reduced food (Ensure Enlive) - 237ml bottle PO SCH (17:28)
[2024-11-17 19:19] VITALS: RESP 16
[2024-11-18 07:00] VITALS: RESP 16
--- NOTE | 2024-11-18 11:22 | PROGRESS NOTE ---
Progress Note Dictate Providers to CC ~ Central Line/PICC still needed: N\\A Antibiotic Ordered?: No MRSA Education MRSA Education Provided to pt: No Objective Vitals Vital Signs Date Time Temp Pulse Resp B/P (MAP) Pulse Ox O2 Delivery O2 Flow Rate FiO2 11/18/24 07:00 16 11/17/24 19:19 Room Air Problem\\Assessment\\Plan Problems/Diagnosis: (1) Schizoaffective disorder Psychiatrist's Progress Note Date of Service: Nov 18, 2024 Notes CHART REVIEW This 43 year old female admitted [facility] shift at 2118 from [facility]. Arrived to unit from ED via w/c, accompanied per [facility] staff and [facility] Personnel. Pt is on a 5150 for DTS, DTO and GD. Per 5150, this pt was being evaluated for release from senior care but had no plan for providing food, clothing or alf. Also, she is reported to be delusional, stating that the was the President of the and [facility]. She is also reported to have been responding to internal stimuli. Prior to her arrest, she was reported to have been wandering from house to house and harassing others, and she told nurses she would find a house and move in. Referral info states she also said she was the of Chance Bergman (a fictional character) and that the [facility] government would bring to others. Upon arrival to [facility], she denies SI/HI/AVH. Upon meeting pt, she spoke in Malawian and appeared to understand/comprehend. When asked about her primary language (pt's referral information reports that she is from [facility]) before explaining her 5150 hold, she stated she wanted an Communications Program Manager. When explaining to pt that I would explain the 5150 using the laborer wrecking and salvaging but it might be several minutes before the laborer wrecking and salvaging machine could be obtained, she gave verbal permission to receive the verbal advisement in Malawian and verbalized that she understood. Also presented pt with 5150 advisement in writing. On admit, Pt hostile, refusing to answer most questions, stating she does not want to be here and there is no reason for her to be here. Alert, oriented to person and place but she has poor insight into her need for hospitalization. ASSESSMENT The patient was interviewed in designated room. The patient was actively resting in bed with eyes closed. The patient endorses she was living at a alf in [place] for one month and she was kicked out. When asked why was she kicked out patient endorses "I do not know they are all criminals that is why." The patient endorses she has no income and does not receive any food stamps. Patient endorses she has no family in [place]. Patient endorses she would like a past port and plane ticket back to [facility] or she is requesting that we find her a place to live in [place]. The patient is stable no acute distress noted. The patient presents as uncooperative, and disengaged during session. Despite the patient not opening her eyes and acknowledges this rewriter; the patient was more talkative today but still pressured speech and rude. Per staff report patient is medication c ompliant. Will continue daily assessment and adjusting treatment as needed. Closely monitor behavior and response to medication during hospitalization. Results Of any Diagn. Testing REVIEW OF LABS URINALYSIS NEGATIVE URINE DRUG SCREEN NEGATIVE WBC 8.6 RBC 4.22 HEMOGLOBIN 12.8 HEMATOCRIT 37.3 PLATELETS 347 SODIUM 141 POTASSIUM 3.6 CHLORIDE 108 ANION GAP 10 GLUCOSE 98 BUN 11 CREATININE 0.72 CALCIUM 9.1 ALT22 AST12 TSH 5.32 Appearnace: Disheveled (UNKEMPT. MALODOROUS) Speech: Pressured Behavior: Other (UNCOOPERATIVE) Insight: Poor Judgment: Poor Treatment OLANZAPINE 10MG PO HS Monitoring by Staff, Milieu, Group, and Individual counseling as needed -- According to the [place] Suicide Assessment the above named patient is on Q15 MINUTE CHECKS. [id number]-The patient is unable to formulate a plan to safely meet their basic needs of food, clothing, and alf. We are still titrating medications to an effective dose while maintaining a therapeutic environment to prevent decompensation and readmission. Total time spent 40 minutes REVIEW OF Clinical notes [X ] RN notes [X] PCT documentation [X] SW notes Labs [ X] Medications [X] Care trends/care activity [X] Vitals [X] DISCUSSION WITH boat joiner [X] Staff SW [X] Treatment Team [X] Discharge UNSURE AT THIS TIME. DISCHARGE HOME ONCE STABLE CODING VISIT-PSYCHIATRY Date of Service: Nov 18, 2024 Billing Provider: IVANNA TRAORE APRN Psych Common Visit Codes: [id number] INP/OBS CARE(Low) IVANNA TRAORE APRN Nov 18, 2024 11:22
--- NOTE | 2024-11-18 17:28 | PROGRESS NOTE ---
Daily Progress Note Providers to CC ~ Antibiotic Timeout Antibiotic Ordered?: No Subjective Patient was seen in mental health unit in presence of nursing staff she refused to get examined Objective Vital Signs Date Time Temp Pulse Resp B/P (MAP) Pulse Ox O2 Delivery O2 Flow Rate FiO2 11/18/24 07:00 16 Room Air Lying on bed looks comfortable refused for examination Problem\Assessment\Plan Patient admitted to Mental Health for management of schizoaffective disorder; ma nagement per Psychiatry No acute medical issues. We will continue to follow patient from hospitalist team as needed or as per protocol Date of Service: Nov 18, 2024 Billing Provider: ELSY PAIGE MD Common Visit Codes: [id number] INP/OBS CARE(LOW) ELSY PAIGE MD Nov 18, 2024 17:28
[2024-11-18 20:00] VITALS: RESP 16
[2024-11-19 07:00] VITALS: RESP 16
[2024-11-19 08:10] VITALS: RESP 16
--- NOTE | 2024-11-19 14:03 | PROGRESS NOTE ---
Progress Note Dictate Providers to CC ~ Central Line/PICC still needed: N\A Antibiotic Ordered?: No MRSA Education MRSA Education Provided to pt: No Objective Vitals Vital Signs Date Time Temp Pulse Resp B/P (MAP) Pulse Ox O2 Delivery O2 Flow Rate FiO2 11/19/24 08:10 16 Room Air Problem\Assessment\Plan Problems/Diagnosis: (1) Schizoaffective disorder Psychiatrist's Progress Note Date of Service: Nov 19, 2024 Notes CHART REVIEW This 43 year old female admitted [facility] shift at [address] [facility]. Arrived to unit from ED via w/c, accompanied per [facility] staff and Security Personnel. Pt is on a 5150 for DTS, DTO and GD. Per 5150, this pt was being evaluated for release from assisted but had no plan for providing food, clothing or skilled nursing. Also, she is reported to be delusional, stating that the was the President of the and [facility]. She is also reported to have been responding to internal stimuli. Prior to her arrest, she was reported to have been wandering from house to house and harassing others, and she told nurses she would find a house and move in. Referral info states she also said she was the of Chance Bergman (a fictional character) and that the [facility] government would bring to others. Upon arrival to [facility], she denies SI/HI/AVH. Upon meeting pt, she spoke in Macedonian and appeared to understand/comprehend. When asked about her primary language (pt's referral information reports that she is from [facility]) before explaining her 5150 hold, she stated she wanted an Engraver Rubber. When explaining to pt that I would explain the 5150 using the battery charger but it might be several minutes before the battery charger machine could be obtained, she gave verbal permission to receive the verbal advisement in Macedonian and verbalized that she understood. Also presented pt with 5150 advisement in writing. On admit, Pt hostile, refusing to answer most questions, stating she does not want to be here and there is no reason for her to be here. Alert, oriented to person and place but she has poor insight into her need for hospitalization. ASSESSMENT The patient was interviewed in designated room. The patient was actively resting in bed with eyes closed. The patient ignored this senior grant writer. The patient would not even open her eyes to acknowledge this ride The patient is stable no acute distress noted. The patient presents as uncooperative, and disengaged during session. Per staff report patient is medication compliant. Staff report patient has not since admission. The patient encouraged to shower in attend to ADLs daily. Will continue daily assessment and adjusting treatment as needed. Closely monitor behavior and response to medication during hospitalization. Results Of any Diagn. Testing REVIEW OF LABS URINALYSIS NEGATIVE URINE DRUG SCREEN NEGATIVE WBC 8.6 RBC 4.22 HEMOGLOBIN 12.8 HEMATOCRIT 37.3 PLATELETS 347 SODIUM 141 POTASSIUM 3.6 CHLORIDE 108 ANION GAP 10 GLUCOSE 98 BUN 11 CREATININE 0.72 CALCIUM 9.1 ALT22 AST12 TSH 5.32 Behavior: Other (UNCOOPERATIVE) Insight: Poor Judgment: Poor Treatment OLANZAPINE 10MG PO HS Monitoring by Staff, Milieu, Group, and Individual counseling as needed -- According to the [place] Suicide Assessment the above named patient is on Q15 MINUTE CHECKS. [id number]-The patient is unable to formulate a plan to safely meet their basic needs of food, clothing, and skilled nursing. We are still titrating med ications to an effective dose while maintaining a therapeutic environment to prevent decompensation and readmission. Total time spent 30 minutes REVIEW OF Clinical notes [X ] RN notes [X] PCT documentation [X] SW notes Labs [ X] Medications [X] Care trends/care activity [X] Vitals [X] DISCUSSION WITH immunopathologist [X] Staff SW [X] Treatment Team [X] Discharge UNSURE AT THIS TIME. DISCHARGE HOME ONCE STABLE CODING VISIT-PSYCHIATRY Date of Service: Nov 19, 2024 Billing Provider: IVANNA TRAORE APRN Psych Common Visit Codes: [id number] INP/OBS CARE(Mod) IVANNA TRAORE APRN Nov 19, 2024 14:03
[2024-11-19 19:00] VITALS: RESP 18
[2024-11-19 20:00] VITALS: RESP 18
[2024-11-20 07:00] VITALS: RESP 15
[2024-11-20 08:00] VITALS: RESP 15
--- NOTE | 2024-11-20 11:40 | PROGRESS NOTE ---
Progress Note Dictate Providers to CC ~ Central Line/PICC still needed: N\\A Antibiotic Ordered?: No MRSA Education MRSA Education Provided to pt: No Objective Vitals Vital Signs Date Time Temp Pulse Resp B/P (MAP) Pulse Ox O2 Delivery O2 Flow Rate FiO2 11/20/24 08:00 15 Room Air Problem\\Assessment\\Plan Problems/Diagnosis: (1) Schizoaffective disorder Psychiatrist's Progress Note Date of Service: Nov 20, 2024 Notes CHART REVIEW This 43 year old female admitted [facility] shift at 2118 from [facility]. Arrived to unit from ED via w/c, accompanied per [facility] staff and Security Personnel. Pt is on a 5150 for DTS, DTO and GD. Per 5150, this pt was being evaluated for release from skilled nursing but had no plan for providing food, clothing or [facility]. Also, she is reported to be delusional, stating that the was the President of the and [facility]. She is also reported to have been responding to internal stimuli. Prior to her arrest, she was reported to have been wandering from house to house and harassing others, and she told nurses she would find a house and move in. Referral info states she also said she was the of Chance Bergman (a fictional character) and that the [facility] government would bring to others. Upon arrival to [facility], she denies SI/HI/AVH. Upon meeting pt, she spoke in Lithuanian and appeared to understand/comprehend. When asked about her primary language (pt's referral information reports that she is from [facility]) before explaining her 5150 hold, she stated she wanted an E Commerce Specialist. When explaining to pt that I would explain the 5150 using the band tumbler but it might be several minutes before the band tumbler machine could be obtained, she gave verbal permission to receive the verbal advisement in Lithuanian and verbalized that she understood. Also presented pt with 5150 advisement in writing. On admit, Pt hostile, refusing to answer most questions, stating she does not want to be here and there is no reason for her to be here. Alert, oriented to person and place but she has poor insight into her need for hospitalization. ASSESSMENT The patient was interviewed in designated room. The patient was actively resting in bed with eyes closed. The patient endorses "I would like to be discharged back to the [facility] in [place]." Patient endorses she would not take her medications when she is discharged "I am perfectly healthy, you dumb ass put I have schizophrenia all over my paperwork." The patient endorses no worsening mental health symptoms. The patient refused to answer anymore questions. "I am not answering anymore of your questions." Patient came to this journalists and other writers's office. Patient endorses "Ivanna, I would like to go to this is social security office here in [place] so that I can get my social security card so that I can apply for a job and then I would like to go back to [place]. The patient endorses call the [facility] in [place] and let them know that I am no trouble. The patient endorses that people were stealing from her and harassing her at the [facility] in [place] and when she called the police she was the one arrested instead of arresting the people that was harassing her. Patient endorses she was like some transitional housing. SI. Denies HI. Denies AVH. Patient endorses adequate sleep and food intake. The patient is stable no acute distress noted. The patient presents as uncooperative, and disengaged during session. Patient has shown some improvement since admission. The patient was more talkative the second session. Per staff report patient is medication compliant. Staff report patient has not showered since admission. The patient encouraged to shower in attend to ADLs daily. Will continue daily assessment and adjusting treatment as needed. Closely monitor behavior and response to medication during hospitalization. We still have limited information on this patient as she only talks when she wants to or is demanding something. The patient has been more cooperative at times with answering questions. Results Of any Diagn. Testing REVIEW OF LABS URINALYSIS NEGATIVE URINE DRUG SCREEN NEGATIVE WBC 8.6 RBC 4.22 HEMOGLOBIN 12.8 HEMATOCRIT 37.3 PLATELETS 347 SODIUM 141 POTASSIUM 3.6 CHLORIDE 108 ANION GAP 10 GLUCOSE 98 BUN 11 CREATININE 0.72 CALCIUM 9.1 ALT22 AST12 TSH 5.32 Speech: Pressured Eye Contact: Avoidant Motor Activity: Normal Affect: Constricted Orientation Impairment: None Memory Impairment: None Attention: Normal Hallucinations: None Other: None Suicidality: None Homicidality: None Delusions: None Behavior: Cooperative, Other (UNCOOPERATIVE) Insight: Poor Judgment: Poor Treatment OLANZAPINE 10MG PO HS Monitoring by Staff, Milieu, Group, and Individual counseling as needed -- According to the [place] Suicide Assessment the above named patient is on Q15 MINUTE CHECKS. [id number]-The patient is unable to formulate a plan to safely meet their basic needs of food, clothing, and mcfp. We are still titrating medications to an effective dose while maintaining a therapeutic environment to prevent decompensation and readmission. Total time spent 40 minutes REVIEW OF Clinical notes [X ] RN notes [X] PCT documentation [X] SW notes Labs [ X] Medications [X] Care trends/care activity [X] Vitals [X] DISCUSSION WITH auto body man [X] Staff SW [X] Treatment Team [X] Discharge UNSURE AT THIS TIME. DISCHARGE HOME ONCE STABLE CODING VISIT-PSYCHIATRY Date of Service: Nov 20, 2024 Billing Provider: IVANNA TRAORE APRN Psych Common Visit Codes: [id number] INP/OBS CARE(Mod) IVANNA TRAORE APRN Nov 20, 2024 11:40
--- NOTE | 2024-11-20 15:16 | PROGRESS NOTE ---
Daily Progress Note Providers to CC ~ Antibiotic Timeout Antibiotic Ordered?: No Subjective This is the hospitalist progress note on patients hospitalized at [facility]. The patient is lying in bed when I went to speak to her and asked her there was anything I can help her with she said she did not want to be bothered this is in line with the experiences of all the previous medical provider's that have went to evaluate the patient. Objective Vital Signs Date Time Temp Pulse Resp B/P (MAP) Pulse Ox O2 Delivery O2 Flow Rate FiO2 11/20/24 08:00 15 Room Air Gen NAD, resting comfortable in bed Respiratory no respiratory distress appreciated Neuro no abnormal movements appreciated Problem\Assessment\Plan Patient admitted to Mental Health for management of schizoaffective disorder; management per Psychiatry The patient has refused to be examined on every encounter with a hospitalist provider No acute medical issues. The hospitalist team will continue to follow the patient. Date of Service: Nov 20, 2024 Billing Provider: GAYLE DE LEON DO Common Visit Codes: [id number] INP/OBS CARE(LOW) GAYLE DE LEON DO Nov 20, 2024 15:16
[2024-11-20 19:00] VITALS: RESP 16
[2024-11-20 20:00] VITALS: RESP 16
[2024-11-21 07:00] VITALS: RESP 16
[2024-11-21 08:17] VITALS: RESP 16
--- NOTE | 2024-11-21 09:24 | PROGRESS NOTE ---
Progress Note Dictate Providers to CC ~ Central Line/PICC still needed: N\\A Antibiotic Ordered?: No MRSA Education MRSA Education Provided to pt: No Objective Vitals Vital Signs Date Time Temp Pulse Resp B/P (MAP) Pulse Ox O2 Delivery O2 Flow Rate FiO2 11/21/24 08:17 16 Room Air Problem\\Assessment\\Plan Problems/Diagnosis: (1) Schizoaffective disorder Psychiatrist's Progress Note Date of Service: Nov 21, 2024 Notes CHART REVIEW This 43 year old female admitted [facility] shift at 2118 from [facility]. Arrived to unit from ED via w/c, accompanied per [facility] staff and Security Personnel. Pt is on a 5150 for DTS, DTO and GD. Per 5150, this pt was being evaluated for release from [facility] but had no plan for providing food, clothing or halfway. Also, she is reported to be delusional, stating that the was the President of the and [facility]. She is also reported to have been responding to internal stimuli. Prior to her arrest, she was reported to have been wandering from house to house and harassing others, and she told nurses she would find a house and move in. Referral info states she also said she was the of Chance Bergman (a fictional character) and that the [facility] government would bring to others. Upon arrival to [facility], she denies SI/HI/AVH. Upon meeting pt, she spoke in [place] and appeared to understand/comprehend. When asked about her primary language (pt's referral information reports that she is from [facility]) before explaining her 5150 hold, she stated she wanted an Stunner. When explaining to pt that I would explain the 5150 using the dress designer but it might be several minutes before the dress designer machine could be obtained, she gave verbal permission to receive the verbal advisement in [place] and verbalized that she understood. Also presented pt with 5150 advisement in writing. On admit, Pt hostile, refusing to answer most questions, stating she does not want to be here and there is no reason for her to be here. Alert, oriented to person and place but she has poor insight into her need for hospitalization. ASSESSMENT The patient was interviewed in designated room. The patient was actively resting in bed with eyes closed. The patient endorses 'Okay." "Where you able to get in touch with the halfway in [place] to see if I can come back." The SW will follow up with Bailee to see if patient is allowed back. The patient endorses no worsening mental health symptoms. Denies SI. Denies HI. Denies AVH. Patient endorses adequate sleep and food intake. The patient is stable no acute distress noted. The patient presents as somewhat cooperative, and engaged during session. Per staff report patient is medication compliant. Per staff report no abnormal behaviors. Per staff report patient has not showered since admission. Patient was educated to perform ADLs and personal hygiene daily and participate in group/unit activities or walk around unit at least 2 times per shift. Will continue daily assessment and adjusting treatment as needed. Closely monitor behavior and response to medication during hospitalization. Results Of any Diagn. Testing REVIEW OF LABS URINALYSIS NEGATIVE URINE DRUG SCREEN NEGATIVE WBC 8.6 RBC 4.22 HEMOGLOBIN 12.8 HEMATOCRIT 37.3 PLATELETS 347 SODIUM 141 POTASSIUM 3.6 CHLORIDE 108 ANION GAP 10 GLUCOSE 98 BUN 11 CREATININE 0.72 CALCIUM 9.1 ALT22 AST12 TSH 5.32 Appearnace: Other Speech: Pressured Eye Contact: Other (INTERMITTENT) Motor Activity: Normal Affect: Constricted Orientation Impairment: Place Memory Impairment: None Attention: Normal Hallucinations: None Other: None Suicidality: None Homicidality: None Delusions: None Behavior: Cooperative (AT TIMES) Insight: Poor Judgment: Poor Treatment Treatment OLANZAPINE 10MG PO HS Monitoring by Staff, Milieu, Group, and Individual counseling as needed -- According to the [place] Suicide Assessment the above named patient is on Q15 MINUTE CHECKS. [id number]-The patient is unable to formulate a plan to safely meet their basic needs of food, clothing, and halfway. We are still titrating medications to an effective dose while maintaining a therapeutic environment to prevent decompensation and readmission. Total time spent 40 minutes REVIEW OF Clinical notes [X ] RN notes [X] PCT documentation [X] SW notes Labs [ X] Medications [X] Care trends/care activity [X] Vitals [X] DISCUSSION WITH recycling collections driver [X] Staff SW [X] Treatment Team [X] Discharge UNSURE AT THIS TIME. DISCHARGE HOMELESS ONCE STABLE CODING VISIT-PSYCHIATRY Date of Service: Nov 21, 2024 Billing Provider: IVANNA TRAORE APRN Psych Common Visit Codes: [id number] INP/OBS CARE(Mod) IVANNA TRAORE APRN Nov 21, 2024 09:24
[2024-11-21 19:00] VITALS: RESP 16
[2024-11-21 20:00] VITALS: RESP 16
[2024-11-21] MEDS: olanzapine 10mg tablet PO SCH (20:12)
--- NOTE | 2024-11-22 06:53 | PROGRESS NOTE ---
Progress Note Dictate Providers to CC ~ Central Line/PICC still needed: N\\A Antibiotic Ordered?: No MRSA Education MRSA Education Provided to pt: No Objective Vitals Vital Signs Date Time Temp Pulse Resp B/P (MAP) Pulse Ox O2 Delivery O2 Flow Rate FiO2 11/21/24 20:00 16 Room Air Problem\\Assessment\\Plan Problems/Diagnosis: (1) Schizoaffective disorder Psychiatrist's Progress Note Date of Service: Nov 22, 2024 Notes CHART REVIEW This 43 year old female admitted [facility] shift at 2118 from [facility]. Arrived to unit from ED via w/c, accompanied per [facility] staff and Security Personnel. Pt is on a 5150 for DTS, DTO and GD. Per 5150, this pt was being evaluated for [facility] from [facility] but had no plan for providing food, clothing or intermediate. Also, she is reported to be delusional, stating that the was the President of the and [facility]. She is also reported to have been responding to internal stimuli. Prior to her arrest, she was reported to have been wandering from house to house and harassing others, and she told nurses she would find a house and move in. Referral info states she also said she was the of Chance Bergman (a fictional character) and that the [facility] government would bring to others. Upon arrival to [facility], she denies SI/HI/AVH. Upon meeting pt, she spoke in Faroese and appeared to understand/comprehend. When asked about her primary language (pt's referral information reports that she is from [facility]) before explaining her 5150 hold, she stated she wanted an Poultry Tender. When explaining to pt that I would explain the 5150 using the business affairs manager but it might be several minutes before the business affairs manager machine could be obtained, she gave verbal permission to receive the verbal advisement in Faroese and verbalized that she understood. Also presented pt with 5150 advisement in writing. On admit, Pt hostile, refusing to answer most questions, stating she does not want to be here and there is no reason for her to be here. Alert, oriented to person and place but she has poor insight into her need for hospitalization. ASSESSMENT The patient was interviewed in designated room. The patient was actively walking in hallway. The patient endorses 'fine." The patient was not informed that she was not permitted to return back to [facility] due to her behaviors. "You need to find me housing." The patient endorses no worsening mental health symptoms. Denies SI. Denies HI. Denies AVH. Patient endorses adequate sleep and food intake. The patient is stable no acute distress noted. The patient presents as somewhat cooperative, and engaged during session. Per staff report patient is medication compliant. Per staff report no abnormal behaviors. Per staff report patient showered last night. Will continue daily assessment and adjusting treatment as needed. Closely monitor behavior and response to medication during hospitalization. Results Of any Diagn. Testing REVIEW OF LABS URINALYSIS NEGATIVE URINE DRUG SCREEN NEGATIVE WBC 8.6 RBC 4.22 HEMOGLOBIN 12.8 HEMATOCRIT 37.3 PLATELETS 347 SODIUM 141 POTASSIUM 3.6 CHLORIDE 108 ANION GAP 10 GLUCOSE 98 BUN 11 CREATININE 0.72 CALCIUM 9.1 ALT22 AST12 TSH 5.32 Speech: Pressured Eye Contact: Other (INTERMITTENT) Motor Activity: Normal Affect: Constricted Mood: Irritable Orientation Impairment: None Memory Impairment: None Attention: Normal Hallucinations: None Other: None Suicidality: None Homicidality: None Delusions: None Behavior: Cooperative, Agitated Insight: Poor Judgment: Poor Treatment OLANZAPINE 10MG PO HS Initiate DEPAKOTE 250 MG P.O. Q.H.S. Monitoring by Staff, Milieu, Group, and Individual counseling as needed -- According to the [place] Suicide Assessment the above named patient is on Q15 MINUTE CHECKS. [id number]-The patient is unable to formulate a plan to safely meet their basic needs of food, clothing, and intermediate. We are still titrating medications to an effective dose while maintaining a therapeutic environment to prevent decompensation and readmission. Total time spent 40 minutes REVIEW OF Clinical notes [X ] RN notes [X] PCT documentation [X] SW notes Labs [ X] Medications [X] Care trends/care activity [X] Vitals [X] DISCUSSION WITH electrical electronics engineer [X] Staff SW [X] Treatment Team [X] Discharge UNSURE AT THIS TIME. DISCHARGE HOMELESS ONCE STABLE CODING VISIT-PSYCHIATRY Date of Service: Nov 22, 2024 Billing Provider: IVANNA TRAORE APRN Psych Common Visit Codes: [id number] INP/OBS CARE(Mod) IVANNA TRAORE APRN Nov 22, 2024 06:53
[2024-11-22 07:00] VITALS: RESP 14
[2024-11-22 08:00] VITALS: RESP 14
--- NOTE | 2024-11-22 17:34 | PROGRESS NOTE- Residence ---
Progress Note - Resident Providers to CC Resident Creating Document: VEDA KING, RES ~ Antibiotic Timeout Antibiotic Ordered?: No Subjective Patient was seen and examined at the bedside. Patient seems unpleasant and does not want to be bothered. When asked about how she was doing she just replies saying "I am doing fine" in a harsh tone. Objective Vital Signs Date Time Temp Pulse Resp B/P (MAP) Pulse Ox O2 Delivery O2 Flow Rate FiO2 11/22/24 08:00 14 Room Air Patient refused to be examined. Plan Plan # Schizoaffective disorder - Management per psychiatrist, hospitalist team will continue to follow. Disposition: Hospitalist team will follow the patient during hospitalization, you are welcome to questions and medical consultation, appreciate for letting us involved in patient's care. Veda Canela MD Internal Medicine Resident, PGY1 [facility] Date of Service: Nov 22, 2024 Billing Provider: CHACHA SALDANA MD Common Visit Codes: [id number] INP/OBS CARE(MOD) VEDA KING, BHASKAR Nov 22, 2024 17:34 CHACHA SALDANA MD Nov 26, 2024 16:44
[2024-11-22 19:00] VITALS: RESP 16
[2024-11-22 20:00] VITALS: RESP 16
[2024-11-22] MEDS: divalproex sod 250mg ER (24-hour) tablet PO SCH (20:10)
[2024-11-23 07:00] VITALS: RESP 13
[2024-11-23 08:00] VITALS: RESP 13
--- NOTE | 2024-11-23 18:30 | PROGRESS NOTE ---
Progress Note Dictate Providers to CC ~ Central Line/PICC still needed: N\A Antibiotic Ordered?: No Objective Vitals Vital Signs Date Time Temp Pulse Resp B/P (MAP) Pulse Ox O2 Delivery O2 Flow Rate FiO2 11/23/24 08:00 13 Room Air Problem\Assessment\Plan Problems/Diagnosis: (1) Schizoaffective disorder Psychiatrist's Progress Note Date of Service: Nov 23, 2024 Notes This patient is a 43-year-old female with a past medical history of schizoaffective disorder with multiple prior visits to Mental Health who is very familiar with the patient who presents with mental health and for other police officers due to being a danger to self, others and possible gravely disabled. Patient states that she is the president of you crying in [facility] as well as being involved in trauma. The patient states that she will not take any medication that she would not give any bled as she is allergic to giving blood and will pass out. The patient was noted to have been going from household to household presenting herself as being a danger to others and verbal form but not physical form. The patient presents denied any complaints but also refusing to answer any questions other than the questions which she has decided to talk about with a rambling stream of consciousness with evidence of paranoia and delusional. CHART REVIEW This 43 year old female admitted [facility] shift at 2118 from [facility]. Arrived to unit from ED via w/c, accompanied per [facility] staff and Security Personnel. Pt is on a 5150 for DTS, DTO and GD. Per 5150, this pt was being evaluated for release from nursing home but had no plan for providing food, clothing or detention. Also, she is reported to be delusional, stating that she was the President of the [place] and [facility]. She is also reported to have been responding to internal stimuli. Prior to her arrest, she was reported to have been wandering from house to house and harassing others, and she told nurses she would find a house and move in. Referral info states she also said she was the of Chance Bergman (a fictional character) and that the [facility] government would bring to others. Upon arrival to [facility], she denies SI/HI/AVH. Upon meeting pt, she spoke in [place]ian and appeared to understand/comprehend. When asked about her primary language (pt's referral information reports that she is from [facility]) before explaining her 5150 hold, she stated she wanted an Media Coordinator. When explaining to pt that I would explain the 5150 using the historical interpreter but it might be several minutes before the historical interpreter machine could be obtained, she gave verbal permission to receive the verbal advisement in [place]ian and verbalized that she understood. Also presented pt with 5150 advisement in writing. On admit, Pt hostile, refusing to answer most questions, stating she does not want to be here and there is no reason for her to be here. Alert, oriented to person and place but she has poor insight into her need for hospitalization. Patient is a short overweight female. She has long dark hair in a pony tail. She is wearing green scrubs. 'not doing well.' 'I want you to arrange me a house so no one can bring me somewhere against will.' No income. Denies SI. Denies HI. But is very irritable and agitated. She is angry at her room mate. She wants a room mate change. She states she is going to end up hurting her if she has to stay in the same room as her. She Denies AH/VH, but is seen responding to i nternal stimuli. Denies Delusions or Paranoia. But does believe she is to 'Chance Bergman.' Denies depression or sadness. Currently denies SI or plans. Sleeping badly because of room mate. She plans to complain and press charges. Does not want a higher dose of zyprexa. Does not want any other medications. Won't take the Depakote prescribed for her last night. No one talked to her about it and does not want any medication changes, 'I'm leaving in two days and I won't have it.' She has no insight into her mental illness or the necessity of increasing or changing medications. Mental Status Eye contact: Intermittent; Behavior: Uncooperative. Very guarded Speech: Thick accent and a bit pressured but minimal. Mood: Irritable. Affect: Constricted. Thought process: Mild disorganization, Circumstantial at times. Paranoid Delusions. Thought Content: immediate needs/medications. Cognition: A&O X3 not truly why; Insight: Very Poor insight into mental illness and consequences of actions; Judgment: Very Poor; SI Denies/HI POS thoughts of harming room mate, AH Denies, but is definitely seen responding to internal stimuli/VH Denies Results Of any Diagn. Testing REVIEW OF LABS URINALYSIS NEGATIVE URINE DRUG SCREEN NEGATIVE WBC 8.6 RBC 4.22 HEMOGLOBIN 12.8 HEMATOCRIT 37.3 PLATELETS 347 SODIUM 141 POTASSIUM 3.6 CHLORIDE 108 ANION GAP 10 GLUCOSE 98 BUN 11 CREATININE 0.72 CALCIUM 9.1 ALT 22 AST12 TSH 5.32 Treatment Zyprexa 10mg QD Depakote 250mg Monitoring by Staff, Milieu, Group, and Individual counseling as needed -- According to the [place] Suicide Assessment the above named patient is on Q15 MINUTE CHECKS. 5270-- GD-DTS-DTO- The patient is unable to formulate a plan to safely meet their basic needs of food, clothing, and detention. We are still titrating medications to an effective dose while maintaining a therapeutic environment to prevent decompensation and readmission. DISCHARGE UNSURE AT THIS TIME. [facility] in [facility] states patient is not welcome to return d/t behaviors. REVIEW OF Clinical notes [X ] RN notes [X] PCT documentation [X] SW notes [X] Labs [ X] Medications [X] Care trends/care activity [X] Vitals [X] DISCUSSION WITH support engineer [X] CODING VISIT-PSYCHIATRY Date of Service: Nov 23, 2024 Billing Provider: GREGORY GOETZ Psych Common Visit Codes: [id number] INP/OBS CARE(High) Problem Qualifiers (1) Schizoaffective disorder: Qualified Codes: F25.9 - Schizoaffective disorder, unspecified GREGORY GOETZ Nov 23, 2024 18:30
[2024-11-23 19:00] VITALS: RESP 15; RESP 16
[2024-11-23] MEDS: traZODone 50mg tablet PO PRN (20:24)
--- NOTE | 2024-11-24 08:01 | PROGRESS NOTE ---
Daily Progress Note Providers to CC No new complaint today resting comfortably in the bed ~ Central Line/PICC still needed: No Brooks-Non Protocol Brooks Indications Met/Not Met: F/C Indications Not Met Antibiotic Timeout Antibiotic Ordered?: No MRSA Education MRSA Education Provided to pt: No Subjective As above Objective Vital Signs Date Time Temp Pulse Resp B/P (MAP) Pulse Ox O2 Delivery O2 Flow Rate FiO2 11/23/24 19:00 16 Room Air Vital signs, stable ,afebrile. Pulse Oximetry reflects adequate oxygenation. General: well developed, well nourished. Awake , alert, and oriented x4, resting comfortably in the bed, in no acute distress . Skin: Warm, dry, no pallor, no rash or petechiae. HEENT: Atraumatic, normocephalic, EOMI, anicteric sclera B; pink conjunctiva; PERRLA, normal oropharynx, moist oral and nasal mucosa. Tympanic membrane , nose , throat clear. Neck: Trachea midline. Supple, full range of motion, no JVD, bruit , hepatojugular reflex , lymphadenopathy or masses, or other lesions Cardiac: Regular rhythm, regular rate no murmurs, rubs, or gallops. Normal S1 and S2, no S3 noticed. PMI is normal. Respiratory: Equal breath sounds bilaterally, no tachypnea; lungs clear to auscultation bilaterally, no wheezing ,rub or rales, or crackles. Chest wall is symmetric and without deformity. No signs of trauma. Chest wall is nontender. No signs of respiratory distress. Resonance is normal upon percussion bilaterally. Gastrointestinal: Abdomen symmetric, non-distended, soft, non-tender, normal bowel sounds x4 quadrant, normoactive, no hepatosplenomegaly , no masses , no bruit, no flank pain bilaterally. No voluntary guarding, rebound, or rigidity. No tenderness to percussion. No pulsatile masses. Equal femoral pulses. No Mathis's sign or McBurney point tenderness. Back; no CVA tenderness bilaterally, no deformities. Neck and back are without deformity as well. No tenderness noted on palpation of the spinous processes. Spinous processes are midline. Cervical, thoracic, and lumbar paraspinal muscles are not tender and are without spasm. Musculoskeletal: Extremities, normal range of motion, non-tender, muscle strength 5/5 x 4. Negative Homans signs bilaterally on lower extremity. Distal pulses full symmetrical, no clubbing, cyanosis , edema. Neurological: Speech is clear, alert, and oriented x 4. No motor or sensory deficit, deep tendon reflexes normal, cerebellar intact. Cranial nerves II-XII intact. Psych: Alert and or appropriate, normal affect. Vascular: Good distal pulses, which are equal x4; capillary refill less than 2 seconds. Lymphatic, no lymphadenopathy. Problem\Assessment\Plan Assessment/plan Patient admitted to Mental Health for management of schizoaffective disorder; management per Psychiatry DVT gastropathy prophylaxis addressed Patient ambulating The hospitalist team will continue to follow the patient. Sepsis Screening Reassessment Date: Nov 24, 2024 Date of Service: Nov 24, 2024 Billing Provider: AMOS GELLER MD Common Visit Codes: [id number] INP/OBS CARE(LOW) AMOS GELLER MD Nov 24, 2024 08:01
[2024-11-24 19:00] VITALS: RESP 15
--- NOTE | 2024-11-24 19:11 | PROGRESS NOTE ---
Progress Note Dictate Providers to CC ~ Central Line/PICC still needed: N\A Antibiotic Ordered?: No Objective Vitals Vital Signs Date Time Temp Pulse Resp B/P (MAP) Pulse Ox O2 Delivery O2 Flow Rate FiO2 11/24/24 08:00 Room Air 11/23/24 19:00 16 Problem\Assessment\Plan Problems/Diagnosis: (1) Schizoaffective disorder Psychiatrist's Progress Note Date of Service: Nov 24, 2024 Notes This patient is a 43-year-old female with a past medical history of schizoaffective disorder with multiple prior visits to Mental Health who is very familiar with the patient who presents with mental health and for other police officers due to being a danger to self, others and possible gravely disabled. Patient states that she is the president of [employer] in [facility] as well as being involved in trauma. The patient states that she will not take any medication that she would not give any bled as she is allergic to giving blood and will pass out. The patient was noted to have been going from household to household presenting herself as being a danger to others and verbal form but not physical form. The patient presents denied any complaints but also refusing to answer any questions other than the questions which she has decided to talk about with a rambling stream of consciousness with evidence of paranoia and delusional. CHART REVIEW This 43 year old female admitted [facility] shift at 2118 from [facility]. Arrived to unit from ED via w/c, accompanied per [facility] staff and Security Personnel. Pt is on a 5150 for DTS, DTO and GD. Per 5150, this pt was being evaluated for release from care home but had no plan for providing food, clothing or nursing home. Also, she is reported to be delusional, stating that she was the President of the [place] and [facility]. She is also reported to have been responding to internal stimuli. Prior to her arrest, she was reported to have been wandering from house to house and harassing others, and she told nurses she would find a house and move in. Referral info states she also said she was the of Chance Bergman (a fictional character) and that the [facility] government would bring to others. Upon arrival to [facility], she denies SI/HI/AVH. Upon meeting pt, she spoke in Beninese and appeared to understand/comprehend. When asked about her primary language (pt's referral information reports that she is from [facility]) before explaining her 5150 hold, she stated she wanted an Security Incident Response Engineer. When explaining to pt that I would explain the 5150 using the access clinician but it might be several minutes before the access clinician machine could be obtained, she gave verbal permission to receive the verbal advisement in Beninese and verbalized that she understood. Also presented pt with 5150 advisement in writing. On admit, Pt hostile, refusing to answer most questions, stating she does not want to be here and there is no reason for her to be here. Alert, oriented to person and place but she has poor insight into her need for hospitalization. Patient is a short overweight female. She has long dark hair in a pony tail. She is wearing green scrubs. Patient is threatening and demanding. Hostile. Put into seclusion. Meds ordered last night after receiving 5270 but was able to calm down without them. Today again became very agitated and hostile. Using threatening words and manner with me. Threatening harm because of the 5270 and what was written in it. Mental Status Eye contact: Intermittent; Behavior: Uncooperative. Very guarded. angry and agitated. Speech: Thick accent. Pressured, loud, threatening. Mood: Irritable/agitated. Affect: labile. Thought process: Mild disorganization, Circumstantial at times. Paranoid Delusions. Thought Content: immediate needs/medications. Cognition: A&O X3 not truly why; Insight: Very Poor insight into mental illness and consequences of actions; Judgment: Very Poor; SI Denies/HI POS thoughts of harming this provider, AH Denies, but is definitely seen responding to internal stimuli/VH Denies Results Of any Diagn. Testing REVIEW OF LABS URINALYSIS NEGATIVE URINE DRUG SCREEN NEGATIVE WBC 8.6 RBC 4.22 HEMOGLOBIN 12.8 HEMATOCRIT 37.3 PLATELETS 347 SODIUM 141 POTASSIUM 3.6 CHLORIDE 108 ANION GAP 10 GLUCOSE 98 BUN 11 CREATININE 0.72 CALCIUM 9.1 ALT 22 AST12 TSH 5.32 Treatment She refuses to change meds at this time. Does not feel she needs them. Very poor insight and judgment into her own mental illness and behavior as well as consequences of her behaviors. Minimal contact with this patient d/t her threatening myself. Zyprexa 10mg QD Depakote 250mg Monitoring by Staff, Milieu, Group, and Individual counseling as needed -- According to the [place] Suicide Assessment the above named patient is on Q15 MINUTE CHECKS. 5270-- GD-DTS-DTO- The patient is unable to formulate a plan to safely meet their basic needs of food, clothing, and nursing home. We are still titrating medications to an effective dose while maintaining a therapeutic environment to prevent decompensation and readmission. DISCHARGE UNSURE AT THIS TIME. [facility] patient is not welcome to return d/t behaviors. REVIEW OF Clinical notes [X ] RN notes [X] PCT documentation [X] SW notes [X] Labs [ X] Medications [X] Care trends/care activity [X] Vitals [X] DISCUSSION WITH condenser cleaner [X] CODING VISIT-PSYCHIATRY Date of Service: Nov 24, 2024 Billing Provider: GREGORY GOETZ Psych Common Visit Codes: [id number] INP/OBS CARE(Mod) Problem Qualifiers (1) Schizoaffective disorder: Qualified Codes: F25.9 - Schizoaffective disorder, unspecified GREGORY GOETZ Nov 24, 2024 19:11
[2024-11-24 20:00] VITALS: RESP 15
[2024-11-24 22:46] VITALS: RESP 15
--- NOTE | 2024-11-25 11:10 | PROGRESS NOTE ---
Progress Note Dictate Providers to CC ~ Central Line/PICC still needed: N\A Antibiotic Ordered?: No MRSA Education MRSA Education Provided to pt: No Objective Vitals Vital Signs Date Time Temp Pulse Resp B/P (MAP) Pulse Ox O2 Delivery O2 Flow Rate FiO2 11/24/24 22:46 15 Room Air Problem\Assessment\Plan Problems/Diagnosis: (1) Schizoaffective disorder Psychiatrist's Progress Note Date of Service: Nov 25, 2024 Notes CHART REVIEW This 43 year old female admitted [facility] shift at [address] [facility]. Arrived to unit from ED via w/c, accompanied per [facility] staff and Security Personnel. Pt is on a 5150 for DTS, DTO and GD. Per 5150, this pt was being evaluated for release from [facility] but had no plan for providing food, clothing or [facility]. Also, she is reported to be delusional, stating that the was the President of the and [facility]. She is also reported to have been responding to internal stimuli. Prior to her arrest, she was reported to have been wandering from house to house and harassing others, and she told nurses she would find a house and move in. Referral info states she also said she was the of Chance Bergman (a fictional character) and that the [facility] government would bring to others. Upon arrival to [facility], she denies SI/HI/AVH. Upon meeting pt, she spoke in Nepalese and appeared to understand/comprehend. When asked about her primary language (pt's referral information reports that she is from [facility]) before explaining her 5150 hold, she stated she wanted an Priming Machine Operator. When explaining to pt that I would explain the 5150 using the materials development engineer but it might be several minutes before the materials development engineer machine could be obtained, she gave verbal permission to receive the verbal advisement in Nepalese and verbalized that she understood. Also presented pt with 5150 advisement in writing. On admit, Pt hostile, refusing to answer most questions, stating she does not want to be here and there is no reason for her to be here. Alert, oriented to person and place but she has poor insight into her need for hospitalization. ASSESSMENT The patient was interviewed in designated room. The patient was actively resting in bed with eyes closed. The patient ignored this editorial writer. The patient is stable no acute distress noted. The patient presents as uncooperative, and disengaged during session. Per staff report patient is medication non-compliant. Per staff report no abnormal behaviors. Will continue daily assessment and adjusting treatment as needed. Closely monitor behavior and response to medication during hospitalization. Results Of any Diagn. Testing REVIEW OF LABS URINALYSIS NEGATIVE URINE DRUG SCREEN NEGATIVE WBC 8.6 RBC 4.22 HEMOGLOBIN 12.8 HEMATOCRIT 37.3 PLATELETS 347 SODIUM 141 POTASSIUM 3.6 CHLORIDE 108 ANION GAP 10 GLUCOSE 98 BUN 11 CREATININE 0.72 CALCIUM 9.1 ALT22 AST12 TSH 5.32 Behavior: Other (UNCOOPERATIVE) Insight: Poor Judgment: Poor Treatment OLANZAPINE 10MG PO HS DEPAKOTE 250 MG P.O. Q.H.S. Monitoring by Staff, Milieu, Group, and Individual counseling as needed -- According to the [place] Suicide Assessment the above named patient is on Q15 MINUTE CHECKS. VOLUNTARY. Total time spent 45 minutes REVIEW OF Clinical notes [X ] RN notes [X] PCT documentation [X] SW notes Labs [ X] Medications [X] Care trends/care activity [X] Vitals [X] DISCUSSION WITH soa architect [X] Staff SW [X] Treatment Team [X] Discharge UNSURE AT THIS TIME. DISCHARGE HOMELESS ONCE STABLE CODING VISIT-PSYCHIATRY Date of Service: Nov 25, 2024 Billing Provider: IVANNA TRAORE APRN Psych Common Visit Codes: [id number] INP/OBS CARE(Mod) Problem Qualifiers (1) Schizoaffective disorder: Qualified Codes: F25.9 - Schizoaffective disorder, unspecified IVANNA TRAORE APRN Nov 25, 2024 11:10
[2024-11-25 19:00] VITALS: RESP 15
[2024-11-25 20:00] VITALS: RESP 15
--- NOTE | 2024-11-26 11:32 | PROGRESS NOTE ---
Progress Note Dictate Providers to CC ~ Central Line/PICC still needed: N\A Antibiotic Ordered?: No MRSA Education MRSA Education Provided to pt: No Objective Vitals Vital Signs Date Time Temp Pulse Resp B/P (MAP) Pulse Ox O2 Delivery O2 Flow Rate FiO2 11/26/24 08:00 Room Air 11/25/24 20:00 15 Problem\Assessment\Plan Problems/Diagnosis: (1) Schizoaffective disorder Psychiatrist's Progress Note Date of Service: Nov 26, 2024 Notes CHART REVIEW This 43 year old female admitted [facility] shift at 2118 from [facility]. Arrived to unit from ED via w/c, accompanied per [facility] staff and [facility] Personnel. Pt is on a 5150 for DTS, DTO and GD. Per 5150, this pt was being evaluated for release from [facility] but had no plan for providing food, clothing or [facility]. Also, she is reported to be delusional, stating that the was the President of the and [facility]. She is also reported to have been responding to internal stimuli. Prior to her arrest, she was reported to have been wandering from house to house and harassing others, and she told nurses she would find a house and move in. Referral info states she also said she was the of Chance Bergman (a fictional character) and that the [facility] government would bring to others. Upon arrival to [facility], she denies SI/HI/AVH. Upon meeting pt, she spoke in Belarusian and appeared to understand/comprehend. When asked about her primary language (pt's referral information reports that she is from [facility]) before explaining her 5150 hold, she stated she wanted an Punch Press Operator Helper. When explaining to pt that I would explain the 5150 using the content publisher but it might be several minutes before the content publisher machine could be obtained, she gave verbal permission to receive the verbal advisement in Belarusian and verbalized that she understood. Also presented pt with 5150 advisement in writing. On admit, Pt hostile, refusing to answer most questions, stating she does not want to be here and there is no reason for her to be here. Alert, oriented to person and place but she has poor insight into her need for hospitalization. ASSESSMENT The patient was interviewed in designated room. The patient was actively resting in bed with eyes closed. The patient ignored this business writer and did not acknowledge this business writer's presents. The patient is stable no acute distress noted. The patient presents as uncooperative, and disengaged during session. Per staff report patient is medication non-compliant with depakote. Per staff report no abnormal behaviors. Will continue daily assessment and adjusting treatment as needed. Closely monitor behavior and response to medication during hospitalization. Results Of any Diagn. Testing REVIEW OF LABS URINALYSIS NEGATIVE URINE DRUG SCREEN NEGATIVE WBC 8.6 RBC 4.22 HEMOGLOBIN 12.8 HEMATOCRIT 37.3 PLATELETS 347 SODIUM 141 POTASSIUM 3.6 CHLORIDE 108 ANION GAP 10 GLUCOSE 98 BUN 11 CREATININE 0.72 CALCIUM 9.1 ALT22 AST12 TSH 5.32 Behavior: Other (UNCOOPERATIVE) Insight: Poor Judgment: Poor Treatment OLANZAPINE 10MG PO HS DEPAKOTE 250 MG P.O. Q.H.S. Monitoring by Staff, Milieu, Group, and Individual counseling as needed -- According to the [place] Suicide Assessment the above named patient is on Q15 MINUTE CHECKS. VOLUNTARY. Total time spent 30 minutes REVIEW OF Clinical notes [X ] RN notes [X] PCT documentation [X] SW notes Labs [ X] Medications [X] Care trends/care activity [X] Vitals [X] DISCUSSION WITH forge operator [X] Staff SW [X] Treatment Team [X] Discharge UNSURE AT THIS TIME. DISCHARGE HOMELESS ONCE STABLE CODING VISIT-PSYCHIATRY Date of Service: Nov 26, 2024 Billing Provider: IVANNA TRAORE APRN Psych Common Visit Codes: [id number] INP/OBS CARE(Low) Problem Qualifiers (1) Schizoaffective disorder: Qualified Codes: F25.9 - Schizoaffective disorder, unspecified IVANNA TRAORE APRN Nov 26, 2024 11:32
--- NOTE | 2024-11-26 18:39 | PROGRESS NOTE- Residence ---
Progress Note - Resident Providers to CC Resident Creating Document: STEPHAN VYAS RES ~ Antibiotic Timeout Antibiotic Ordered?: No Subjective Patient was seen at the bedside of the [facility] unit this afternoon. Patient stated that she will be going home tomorrow and she does not have any medical problems at the moment. Objective Vital Signs Date Time Temp Pulse Resp B/P (MAP) Pulse Ox O2 Delivery O2 Flow Rate FiO2 11/26/24 08:00 Room Air 11/25/24 20:00 15 Vitals were stable at the moment. Exam, General: Well alert, well oriented, not confused, not agitated, not in acute distress, well cooperated during the physical. HEENT: Conjunctive are pink, sclerae clear, no icterus, pupil is equal in both sides, reactive to light, no ear discharge, no pharyngeal erythema or an edema, mouth and lips are moist. Neck: Supple, no JVD, no lymphadenopathy and thyromegaly. Lungs:Equal air entry on both lungs, no additional sounds Heart: S1-S2 regular sinus rhythm and, regular rate, no gallops, no rubs, no murmurs Abdomen: No visible peristalsis, Bowel sounds present on auscultation, soft, nontender, no guarding, no rigidity Extremities: No obvious deformities, no pitting edema bilaterally, capillary refill intact, able to wiggle toes both sides, peripheral pulsations are intact on both sides INJECTION MOLDING ENGINEER: No focal neurological deficits, no motor and sensory weakness in all 4 extremities, could move all 4 extremities Musculoskeletal: No joint swelling, deformities, inflammations, and no scoliosis and back tenderness Skin: No active skin lesions and rashes Plan Plan # Schizoaffective disorder - Management per psychiatrist, hospitalist team will continue to follow. Disposition: Hospitalist team will follow the patient during hospitalization, you are welcome to questions and medical consultation, appreciate for letting us involved in patient's care. Resident MD attestation: Patient was seen, examined and discussed with attending MD, Dr. Verito VYAS MD Internal Medicine Resident, PGY2 [facility] Date of Service: Nov 26, 2024 Billing Provider: CHACHA SALDANA MD, TIN, RES Nov 26, 2024 18:39
[2024-11-26 19:00] VITALS: RESP 16
[2024-11-27 07:00] VITALS: RESP 14
[2024-11-27 08:00] VITALS: RESP 16
[2024-11-27] MEDS ORDERED: DIVA250T8 PO (11:38)
[2024-11-27] MEDS ORDERED: OLAN10TA73 PO (11:38)
--- NOTE | 2024-11-27 11:42 | DISCHARGE SUMMARY ---
Discharge Summary Providers to CC ~ Discharge Summary Admission Diagnosis: SCHIZOAFFECTIVE DISORDER Hospital Course DATE OF ADMISSION: DATE OF DISCHARGE: Discharge Diagnosis\\Comment: SCHIZOAFFECTIVE DISORDER Operations\\Procedures: NONE Consultants: MEDICAL TEAM Complications: NONE Condition on DC: Stable 2 or more antipsychotic used: No 2/more antipsychotic addressed: No Does Patient smoke: No Smoking education given.: No New Medications: Divalproex Sodium (Divalproex Sodium Er) 250 Mg Tab.sr.24h 250 MG PO HS for 30 Days, #30 TAB.SR Olanzapine (Olanzapine) 10 Mg Tablet 10 MG PO HS for 30 Days, #30 TAB Discharge Summary: CHART REVIEW This 43 year old female admitted [facility] shift at 2119 from [facility]. Arrived to unit from ED via w/c, accompanied per [facility] staff and Security Personnel. Pt is on a 5150 for DTS, DTO and GD. Per 5150, this pt was being evaluated for release from nursing home but had no plan for providing food, clothing or assisted. Also, she is reported to be delusional, stating that the was the President of the [place] and [facility]. She is also reported to have been responding to internal stimuli. Prior to her arrest, she was reported to have been wandering from house to house and harassing others, and she told nurses she would find a house and move in. Referral info states she also said she was the of Chance Bergman (a fictional character) and that the [facility] government would bring to others. Upon arrival to [facility], she denies SI/HI/AVH. Upon meeting pt, she spoke in Nepalese and appeared to understand/comprehend. When asked about her primary language (pt's referral information reports that she is from [facility]) before explaining her 5150 hold, she stated she wanted an Movie Critic. When explaining to pt that I would explain the 5150 using the lead manufacturing engineer but it might be several minutes before the lead manufacturing engineer machine could be obtained, she gave verbal permission to receive the verbal advisement in Nepalese and verbalized that she understood. Also presented pt with 5150 advisement in writing. On admit, Pt hostile, refusing to answer most questions, stating she does not want to be here and there is no reason for her to be here. Alert, oriented to person and place but she has poor insight into her need for hospitalization. Patient actively seen and examined on day of discharge 11/27/2024, by myself, MORENO Burciaga. The patient is interviewed in observation room. The patient endorses "Good." Denies SI. Denies HI. Denies AVH. Mona was able to formulate a safety plan which includes going to the emergency room if symptoms return or worsen. Call [phone] or [phone] for immediate assistance if necessary. During his hospital stay,Mona receive multidisciplinary treatment he adhered to his medication regimen and has been pleasant and cooperative. She denies any suicidal ideation (SI), homicidal ideation (HI), auditory/visual hallucination (HI). Staff has reported no behavioral issues, and the patient has been sleeping well, adequate food intake, with no mood or behavioral changes noted. The decision to discharge Mona was made in consensus with the treatment team, including the pediatric social worker, head gauge unit operator, and charge account identification clerk on duty. The patient was E-Scribed a 30 day supply of medication preferred pharmacy. MENTAL STATUS EXAM APPEARANCE: APPROPRIATELY. DRESSED IN STREET CLOTHING. SPEECH: CIRCUMSTANCE EYE CONTACT: NORMAL AFFECT: CONGRUENT WITH MOOD MOOD: "GOOD" ORIENTATION IMPAIRMENT: NONE MEMORY IMPAIRMENT: NONE ATTENTION: NORMAL HALLUCINATIONS: NONE SUICIDALITY: NONE HOMICIDALITY: NONE DELUSIONS: NONE BEHAVIOR: COOPERATIVE, PLEASANT JUDGMENT: FAIR, POOR INSIGHT: FAIR Continue Current Inpatient Psychotropic Regimen @ home Follow-Up with Psychiatric Provider Safety Plan Discussed DISCHARGE CONDITION: Her readiness for discharge is supported by his stable mental status, adherence to treatment, and proactive approach to managing his mental health. Denies SI. Denies HI. Denies A/V/H. The patient has been informed to continue follow-up care to ensure ongoing support and monitoring. Patient discharged to [facility]. *Problems/Diagnosis: (1) Schizoaffective disorder Total Time Spent on D/C: > 30 Minutes Counseling Services Smoking & Tobacco Cessation: N/A CODING VISIT-PSYCHIATRY Date of Service: Nov 27, 2024 Billing Provider: IVANNA TRAORE APRN Psych Common Visit Codes: 56112-[id number] DISCH DAY >30min Problem Qualifiers (1) Schizoaffective disorder: Qualified Codes: F25.9 - Schizoaffective disorder, unspecified IVANNA TRAORE APRN Nov 27, 2024 11:40
== END 2024-11-27 14:40 | disposition home or self-care (01) | DRG 750 ==
LOC: ADULT MH 21:47
PROVIDERS: ADMIT Psychiatry & Neurology Psychiatry; ATTEND Psychiatry & Neurology Psychiatry
PROC: GZHZZZZ Group Psychotherapy (ICD-10-PCS; principal; 2024-11-08)
PROC: GZ51ZZZ Individual Psychotherapy, Behavioral (ICD-10-PCS; 2024-11-08)
DX: F25.9 Schizoaffective disorder, unspecified (principal); Z91.148 Patient's other noncompliance with medication regimen for other reason; Z56.0 Unemployment, unspecified; Z59.01 Sheltered homelessness
CPT/HCPCS: 87081; J1200; J1630; J2060

== ENCOUNTER 2024-12-10 11:03 | Emergency (ER) | payer MEDICAID ==
[~2024-12-10] VITALS: Ht 160 cm; Wt 69.8 kg
[~2024-12-10 11:03] MED LIST: DIVA250T8 PO; OLAN10TA73 PO
[2024-12-10 11:25] VITALS: BP 130/89; PULSE 94; TEMP 98.9; O2SAT 97
--- NOTE | 2024-12-10 11:57 | Physician Documentation ---
History of Present Illness ~ General Chief Complaint: See Chief Complaint Stated Complaint: MED EVAL Time Seen by MD: 11:38 History of Present Illness Initial Comments 44-year-old female presenting to the emergency department requesting urine drug screen. She denied any other symptoms include chills or fever, chest pain or shortness of breath. She reported feeling overall well and at her baseline. Medication Reconciliation Allergies: Coded Allergies: No Known Allergies (Unverified , 11/07/24) Scheduled Divalproex Sodium (Divalproex Sodium Er), 250 MG PO HS Olanzapine (Olanzapine), 10 MG PO HS Past Medical History Patient History: Patient reports no known family medical history. Review of Systems ROS As stated above in the HPI, otherwise all systems are reviewed and negative. Physical Exam Physical Exam Vital Signs: Temperature: 98.9, Source: Temporal, Heart Rate: 94, Respiratory Rate: 18, BP: 130/89, Pulse Oximetry: 97, Weight: 69.800 Oxygen Flow Rate: 0 Physical Exam General: Alert, no apparent distress. Neck: Full range of motion. Respiratory: Lungs clear, no respiratory distress. Chest: No accessory muscle use. Cardiovascular: Regular rate and rhythm, no murmurs. Gastrointestinal: Soft, nontender, nondistended. Bowels sounds present. Extremities: Normal range of motion, no deformity. Neurologic: Oriented x4. Psychiatric: Normal mood and affect. Skin: Normal color, warm and dry. No edema, no ecchymosis. Progress Results/Orders Results/Orders Completed Orders - DHARMESH WARD NP Drug Screen, Urine (12/10/24 11:38) Vital Signs 12/10/24 12/10/24 11:25 13:28 Temp 98.9 Pulse 94 Resp 18 16 B/P (MAP) 130/89 Pulse Ox 97 O2 Flow Rate 0 Laboratory Tests Test 12/10/24 12:32 Urine Opiates Screen Negative Urine Methadone Screen Negative Urine Fentanyl Screen Negative Urine Barbiturates Screen Negative Urine Phencyclidine Screen Negative Urine Amphetamines Screen Negative Urine Benzodiazepines Screen Negative Urine Cocaine Screen Negative Urine Cannabinoids Screen Drug Screen Comment Medical Decision Making Differential Diagnosis Well-appearing 44-year-old female who denied concerns. Urine drug screen was obtained and found to be negative. Departure Time of Disposition: 13:21 Impression: Primary Impression: Encounter for screening Condition: Stable Discharge Instructions: Medical Screening Exam Additional Instructions: Negative STI screening at the ER today. Yuliana PICKERINGCYanira Referrals: NO PRIMARY CARE PROVIDER (PCP) Education Educated: Patient Educated regarding: diagnosis, treatment, prognosis Signature Scribe Signature: x Attestation: The note accurately reflects work and decisions made by me.Dharmesh Bridges NP 13:35 DHARMESH WARD NP Dec 10, 2024 11:57
[2024-12-10 13:08] LABS: URINE AMPHETAMINE SCREEN NEGATIVE (Neg); URINE BARBITUATE SCREEN NEGATIVE (Neg); URINE BENZODIAZEPINES SCREEN NEGATIVE (Neg); URINE COCAINE SCREEN NEGATIVE (Neg); URINE METHADONE SCREEN NEGATIVE (Neg); URINE OPIATE SCREEN NEGATIVE (Neg); URINE PHENCYCLIDINE SCREEN NEGATIVE (Neg)
[2024-12-10 13:28] VITALS: RESP 16
== END 2024-12-10 13:32 | disposition home or self-care (01) ==
LOC: ER 11:03
DX: Z13.89 Encounter for screening for other disorder (principal); Z79.899 Other long term (current) drug therapy
CPT/HCPCS: 80305; 99283

== ENCOUNTER 2024-12-23 20:42 | Emergency (ER) | payer MEDICAID ==
[~2024-12-23] VITALS: Ht 157.5 cm; Wt 70.0 kg
[2024-12-23 20:47] VITALS: BP 138/63; PULSE 106; RESP 16; TEMP 97.8; O2SAT 99
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
== END 2024-12-23 23:54 | disposition home or self-care (01) ==
LOC: EEVIPCON 20:43 → ER 20:43
DX: Z00.00 Encounter for general adult medical examination without abnormal findings (principal); R10.2 Pelvic and perineal pain; Z79.899 Other long term (current) drug therapy
CPT/HCPCS: 99282

== ENCOUNTER 2024-12-28 09:49 | Emergency (ER) | payer MEDICAID ==
[~2024-12-28] VITALS: Ht 152.4 cm; Wt 66.0 kg
[2024-12-28 09:51] VITALS: BP 164/81; PULSE 103; RESP 16; TEMP 98; O2SAT 98
[2024-12-28] MEDS ORDERED: OLAN5TAB29 PO (10:00)
--- NOTE | 2024-12-28 10:01 | Physician Documentation ---
HPI ~ General Chief Complaint: Medication Refill Stated Complaint: MED REQUEST Time Seen by MD: 09:53 Primary Medical Doctor: none Source: patient Mode of Arrival: Ambulatory Exam Limitations: no limitations History of Present Illness HPI Comments [age] playing a female requesting medication to be refilled. Patient would like to have Zyprexa 5 mg refilled. Medication Reconciliation Allergies: Coded Allergies: No Known Allergies (Unverified , 11/07/24) Scheduled Divalproex Sodium (Divalproex Sodium Er), 250 MG PO HS Olanzapine (Olanzapine), 10 MG PO HS Past Medical History Past Medical History: *PSYCH* Patient History: Patient reports no known family medical history. Review of Systems All Other Systems at this time: Reviewed and Negative Physical Exam Physical Exam Vital Signs: RN Vital Signs have been reviewed: Yes, Temperature: 98.0, Source: Temporal, Heart Rate: 103, Respiratory Rate: 16, BP: 164/81, Pulse Oximetry: 98, Weight: 66.000 Oxygen Flow Rate: 0 Physical Exam General: Alert, no apparent distress. Respiratory: Lungs clear, no respiratory distress. Chest: No accessory muscle use. Cardiovascular: Regular rate and rhythm, no murmurs. Psychiatric: Normal mood and affect. Skin: Normal color, warm and dry. No edema, no ecchymosis. Progress Results/Orders Results/Orders Vital Signs 12/28/24 09:51 Temp 98.0 Pulse 103 Resp 16 B/P (MAP) 164/81 Pulse Ox 98 O2 Flow Rate 0 Medical Decision Making Findings Patient did not want to cooperate during triage with frequency medication refilled. The documentation or old chart note states 10 mg of Zyprexa she states 5 mg. Medication refilled Departure Time of Disposition: 09:58 Disposition: 01 HOME / SELF CARE / HOMELESS Impression: Primary Impression: General medical exam Condition: Stable Discharge Instructions: Medicine Refill at the Emergency Department Additional Instructions: Take Medication as prescribed and follow up with primary care Referrals: NO PRIMARY CARE PROVIDER (PCP) Prescriptions Olanzapine (Olanzapine) 5 Mg Tab.rapdis 1 TAB PO HS for 30 Days, #30 TAB 0 Refills Prov: SAMIRA BALLARD NP 12/28/24 Education Educated: Patient Educated regarding: diagnosis, treatment, need for follow up Signature Scribe Signature: No scribe Attestation: The note accurately reflects work and decisions made by me.Samira Ballard - HANSA 12/28/24 10:00 SAMIRA BALLARD NP Dec 28, 2024 10:00
== END 2024-12-28 10:24 | disposition home or self-care (01) ==
LOC: ER 09:49
DX: Z00.8 Encounter for other general examination (principal); Z76.0 Encounter for issue of repeat prescription
CPT/HCPCS: 99281

== ENCOUNTER 2024-12-29 05:25 | Emergency (ER) | payer MEDICAID ==
[~2024-12-29] VITALS: Ht 149.9 cm; Wt 52.0 kg
[~2024-12-29 05:25] MED LIST changes: +OLAN5TAB29 PO
[2024-12-29 07:51] LABS: LEUKOCYTE ESTERASE ,URINE MODERATE (Neg); NITRITES, URINE NEGATIVE (Neg); OCCULT BLOOD,URINE NEGATIVE (Neg)
[2024-12-29 07:53] LABS: UA COLLECTION TYPE CLN CATCH MIDSTREAM
[2024-12-29 07:57] LABS: URINE HCG NEGATIVE (NEG)
[2024-12-29 08:00] LABS: URINE AMPHETAMINE SCREEN NEGATIVE (Neg); URINE BARBITUATE SCREEN NEGATIVE (Neg); URINE BENZODIAZEPINES SCREEN NEGATIVE (Neg); URINE CANNABINOID SCREEN NEGATIVE (Neg); URINE COCAINE SCREEN NEGATIVE (Neg); URINE METHADONE SCREEN NEGATIVE (Neg); URINE OPIATE SCREEN NEGATIVE (Neg); URINE PHENCYCLIDINE SCREEN NEGATIVE (Neg)
[2024-12-29 08:02] LABS: CAL OXALATE CRYSTALS FEW /HPF (NEGATIVE); MUCUS STRANDS FEW /LPF (Neg); SQUAMOUS EPITHELIAL CELL,UR MANY /LPF (FEW); YEAST FEW /HPF (NEGATIVE)
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
[2024-12-29] MEDS: normal saline 1000ml 2,000 ML IV ONE (20:30)
[2024-12-29] MEDS: CefTRIAXone 2gm/D5W 50ml BAG 50 ML IV ONE (20:30)
[2024-12-29] MEDS: haloperidol lactate 5mg/ml inj IM ONE (20:46)
--- NOTE | 2024-12-29 20:48 | ELECTROCARDIOGRAPH REPORT ---
[facility] Test Date: 2024-12-29 Test Time: 20:46:49 Pat Name: JULISSA OTERO Department: [facility]- Patient ID: [facility]-[id number] Room: Gender: F Cleaning Professional: : 1980 Requested By: KING QUESADA Order Number: [id number] Reading MD: Dr. King Quesada Measurements Intervals [place] Rate: 68 P: 51 OR: 150 QRS: 67 QRSD: 81 T: 35 QT: 392 QTc: 417 Interpretive Statements Sinus rhythm Electronically Signed On 12-29-2024 22:27:[address] King Quesada Please click the below link to view image of tracing.
[2024-12-29 20:58] LABS: MEAN PLATELET VOLUME 8.9 FL (7.4-10.4); RED CELL DISTRIBUTION WIDTH 13.1 % (11.5-14.5)
[2024-12-29 21:26] LABS: CREATININE 0.77 MG/DL (0.40-0.90); TOTAL CARBON DIOXIDE 29.3 MMOL/L (24-32); eCRCL 64 ML/MIN; eGFR 82 ML/MIN
[2024-12-29 21:27] LABS: ETHANOL < 10 MG/DL (<10)
[2024-12-29] MEDS: CefTRIAXone 1000mg IM Kit (w/lidocaine diluent) IM ONE (21:37)
[2024-12-30 06:30] VITALS: BP 122/88; PULSE 78; RESP 18; O2SAT 98
[2024-12-30 14:45] VITALS: TEMP 98
== END 2024-12-30 14:53 ==
LOC: ER 05:25
DX: F25.9 Schizoaffective disorder, unspecified (principal); Z79.899 Other long term (current) drug therapy; Z20.822 Contact with and (suspected) exposure to COVID-19
CPT/HCPCS: 36415; 80048; 80305; 80320; 81001; 81025; 83605; 83735; 84145; 84443; 85025; 87040; 87811; 93005; 96372; 99285; J0696; J1200; J1630; J2060; J7030

== ENCOUNTER 2025-05-16 15:49 | Emergency (ER) | payer MEDICAID ==
[~2025-05-16] VITALS: Ht 165.1 cm; Wt 73.4 kg
[~2025-05-16 15:49] MED LIST changes: -DIVA250T8 PO; -OLAN10TA73 PO
[2025-05-16 16:09] VITALS: BP 120/72; PULSE 100; RESP 18; TEMP 98.2; O2SAT 98
--- NOTE | 2025-05-16 16:14 | Physician Documentation ---
History of Present Illness Stated Complaint: "DOCTOR NOTE" Primary Medical Doctor: none HPI Patient is a 44-year-old female that presents to the emergency department for evaluation of need for documentation stating that she is schizophrenic. Patient reports that she was seen here in the emergency department approximately a month ago and admitted to the hospital for some time for a diagnosis of schizophrenia at that time. Patient reports that she is currently staying at the [facility] or has been admitted to a facility and needs documentation stating she is s chizophrenic so that she can receive her benefits. Explained to the patient that we are not able to make a diagnosis of schizophrenia here in the emergency department but if she has previous documentation here in the hospital that diagnosed her with schizophrenia we are happy to relay in a note what her previous diagnosis was. Patient denies any other symptoms or needs at this ti me. Medication Reconciliation Allergies: Coded Allergies: No Known Allergies (Unverified , 05/16/25) Scheduled Olanzapine (Olanzapine), 1 TAB PO HS Past Medical History Past Medical History: *PSYCH* Patient History: Patient reports no known family medical history. Review of Systems ROS As stated above in the HPI, otherwise all systems are reviewed and negative. Physical Exam Physical Exam VITALS: Reviewed and as above. GENERAL: Alert, no apparent distress. HEENT: Normocephalic, atraumatic, PERRL, EOMI, dry mucosa, no erythema RESPIRATORY: Lungs clear, normal breath sounds, no respiratory distress. CHEST: No accessory muscle use, no retractions CV: Regular rate, rhythm, no edema, no murmur, No: JVD MUSCULOSKELETAL No deformities, no edema SKIN: Warm and dry, no rash NEURO: Oriented x4, No motor or sensory deficit PSYCH: Mildly agitated and confrontational, easily redirected during examination. Medical Decision Making Additional information obtaine: other Findings Patient is a 44-year-old female that presents to the emergency department for evaluation of need to have a note stating that she was diagnosed with schizophrenia or schizoaffective disorder in December. I have looked through the patient's previous charts and infected found that she was diagnosed with schizoaffective disorder in December of 2024. We will note this in patients discharge orders. Patient denies any other symptoms or needs at this time. Differential Dx:Considerations: Urolithiasis, Other, N/A Departure Disposition: HOME / SELF CARE / HOMELESS Impression: Primary Impression: Adult general medical examination Additional Impression: Schizoaffective disorder Condition: Stable Discharge Instructions: Managing Schizoaffective Disorder Additional Instructions: Patient is a 44-year-old female that presents to the emergency department for evaluation of need to have a note stating that she was diagnosed with schizophrenia or schizoaffective disorder in December. I have looked through the patient's previous charts and infected found that she was diagnosed with schizoaffective disorder in December of 2024. We will note this in patients discharge orders. Patient denies any other symptoms or needs at this time. Patient was diagnosed with schizoaffective disorder in December of 2024. Patient will follow up with her primary care provider. Patient reports to the emergency department with any worsening or recurrent symptoms or any additional concerning symptoms that we discussed here today. Patient reports no symptoms that are in need of evaluation and no additional concerns at this time. Referrals: NO PRIMARY CARE PROVIDER (PCP) Education Educated: Patient Educated regarding: diagnosis, treatment, need for follow up Signature Scribe Signature: A Attestation: Scribed for Emergency,Department by HANSA Gillespie . 05/16/25 16:23 GIANNI CALZADA May 16, 2025 16:14
== END 2025-05-16 16:35 | disposition home or self-care (01) ==
LOC: ER 15:50
DX: Z00.00 Encounter for general adult medical examination without abnormal findings (principal); F25.9 Schizoaffective disorder, unspecified; Z79.899 Other long term (current) drug therapy
CPT/HCPCS: 99282